=== PATIENT | female | born 1965 | race African-American/Black ===

== ENCOUNTER 2023-08-23 11:44 | Outpatient (AMB) | payer OTHER, SELFPAY ==
--- NOTE | 2023-08-23 11:59 | HO.NEPHOV ---
Intake Vital Signs 08/23/23 12:07 Height 5 ft 5 in Weight 135 lb 2 oz BMI 22.5 Blood Pressure Location Rt brachial Position Sitting Pulse 63 Pulse Source Pulse Oximeter Intake Visit Reasons: Post Transplant T[employer]r Required: No Accompanied by: Self / Same As Patient Allergies latex Allergy (Verified 08/23/23 12:12) Rash HPI HPI Comments History of Present Illness Details 57 year old female with history of ESRD 2/2 IgA nephropathy, HTN, prior morbid obesity s/p lap band, removal, and sleeve gastrectomy, who underwent a living donor renal transplant on 05/10/2023. She tolerated the procedure well. Post-operative kidney ultrasound showed two perinephric collections measuring 4.2 x 2.1 x 2.8 cm and 2.2 x 0.8 x 1.4 cm. On post-operative evaluation, she was noted to be hypotensive to the high 80s and her urine output had decreased. She was given a 500cc bolus of plasmalyte and started on Levophed. She was then transferred to the STICU for hemodynamic monitoring and vasopressor support. She was given 1 unit of PRBCs and weaned off of Levophed over the next two days. In terms of antibiotic prophylaxis, she is on Clotrimazole lozenges, Bactrim, and Valganciclovir but Valcyte has been on hold due to leucopenia. Her immunosuppression regimen includes Envarsus and Mycophenolate. She had right LE cellulits and was treated with antibiotics in [facility]. She claims to be compliant with her medications but has not kept up with her fluid intake. Assessment & Plan Assessment & Plan (1) Renal transplant recipient: Code(s): Z94.0 - Kidney transplant status Plan 1. Renal allograft function: Had been stable; continue to monitor; Blood work ordered ( currently not taking Valcyte) 2. Immunosuppression: Currently maintained on tacrolimus and mycophenolate therapy. We will continue to maintain her serum tacrolimus level between 8 and 11 ng/mL adjusting her dose accordingly. 3. Infection prophylaxis: Currently maintained on Bactrim single strength, and clotrimazole therapy via protocol.( not taking valcyte) 4. Leukopenia: H/O WBC low but no need for treatment at this time; continue to monitor 5. Anemia: stable; no indication for VERENICE therapy given excellent allograft function Follow up in 2 weeks Orders: Orders Tacrolimus Prograf Today Z94.0 - Kidney transplant status Complete Blood Count Auto Diff Today Z94.0 - Kidney transplant status Blood Urea Nitrogen Today Z94.0 - Kidney transplant status Calcium Today Z94.0 - Kidney transplant status Electrolytes Today Z94.0 - Kidney transplant status Creatinine Today Z94.0 - Kidney transplant status Phosphorus Today Z94.0 - Kidney transplant status Magnesium Today Z94.0 - Kidney transplant status PTHI Today Z94.0 - Kidney transplant status Liver Panel Today Z94.0 - Kidney transplant status Coding Level of Care Code New Pt Level 5 (20931) Diagnoses Renal transplant recipient Z94.0 PFSH Medical History (Updated 08/23/23 @ 12:21 by Marianna Kaufman MA) Syncope Seasonal allergies GA (obstructive sleep apnea) Morbid obesity Mild cognitive impairment IgA nephropathy Frequent falls ESRD (end stage renal disease) on dialysis Depression Cervical cancer Back pain Surgical History (Updated 08/23/23 @ 12:47 by Ryley Ybarra MD) Kidney transplant status H/O LEEP Status post gastric banding Social History (Updated 08/23/23 @ 12:23 by Marianna Kaufman MA) Alcohol intake: never Patient Tobacco Use Status: Never used Tobacco
[2023-08-23 12:07] VITALS: PULSE 63; BMI 22.5
== END 2023-08-23 12:45 | disposition home or self-care (01) ==
PROVIDERS: PCP Internal Medicine; Visit Provider Internal Medicine Nephrology
DX: Z48.22 Encounter for aftercare following kidney transplant (principal); Z94.0 Kidney transplant status; D84.821 Immunodeficiency due to drugs; Z79.621 Long term (current) use of calcineurin inhibitor
CPT/HCPCS: 99205

== ENCOUNTER → 2023-08-23 11:44 | Outpatient (BNVA) | payer OTHER, SELFPAY | PROVIDERS: PCP Internal Medicine; Visit Provider Internal Medicine Nephrology | DX: Z48.22 Encounter for aftercare following kidney transplant (principal); Z94.0 Kidney transplant status | CPT/HCPCS: 99202 ==

== ENCOUNTER 2023-09-11 09:23 | Outpatient (AMB) | payer OTHER, SELFPAY ==
[2023-09-11 09:27] VITALS: BP 124/88; PULSE 52; BMI 23.2
--- NOTE | 2023-09-11 09:27 | HO.NEPHOV_ITS ---
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 She tolerated the procedure well. Post-operative kidney ultrasound showed two perinephric collections measuring 4.2 x 2.1 x 2.8 cm and 2.2 x 0.8 x 1.4 cm. On post-operative evaluation, she was noted to be hypotensive to the high 80s and her urine output had decreased. She was given a 500cc bolus of plasmalyte and started on Levophed. She was then transferred to the STICU for hemodynamic monitoring and vasopressor support. She was given 1 unit of PRBCs and weaned off of Levophed over the next two days. In terms of antibiotic prophylaxis, she is on Clotrimazole lozenges, Bactrim, and Valganciclovir but Valcyte has been on hold due to leucopenia. Her immunosuppression regimen includes Envarsus and Mycophenolate. She had right LE cellulits and was treated with antibiotics in [facility] which has been resolved. She claims to be compliant with her medications but has not kept up with her fluid intake. She has acid reflux issues like before. [facility] Medical History (Updated 08/23/23 @ 12:21 by Marianna Kaufman MA) Syncope Seasonal allergies GA (obstructive sleep apnea) Morbid obesity Mild cognitive impairment IgA nephropathy Frequent falls ESRD (end stage renal disease) on dialysis Depression Cervical cancer Back pain Surgical History Kidney transplant status H/O LEEP Status post gastric banding Social History Alcohol intake: never Patient Tobacco Use Status: Never used Tobacco Vital Signs 09/11/23 09:27 Height 5 ft 5 in Weight 139 lb 8 oz BMI 23.2 BP 124/88 Blood Pressure Location Lt brachial Position Sitting Pulse 52 Pulse Source Pulse Oximeter Physical Exam Vital Signs: Last Vital Signs Pulse 52 09/11/23 09:27 BP 124/88 09/11/23 09:27 BMI result Body Mass Index 23.2 Const General: comfortable and no acute distress Orientation/consciousness: patient oriented x3 HEENT Head: Yes normocephalic Mouth: Normal oral and palatal mucosa present Eyes EOM: EOMs intact bilaterally Neck Neck: Yes supple Resp Auscultation: clear to auscultation bilaterally Cardio Jugular venous distension: no JVD Rate: regular rate GI Palpation (GI): Soft to palpation Auscultation: normal bowel sounds General: Yes no CVA tenderness Back/Spine/Pelvis Back: no CVA tenderness Skin General skin exam: no rashes or lesions noted Neuro General: patient oriented x3 and moves all extremities Extrem General: Yes no pedal edema Assessment & Plan Assessment & Plan (1) Renal transplant recipient: Code(s): Z94.0 - Kidney transplant status Plan 1. Renal allograft function: Had been stable; continue to monitor; Blood work ordered ( currently not taking Valcyte) 2. Immunosuppression: Currently maintained on tacrolimus and mycophenolate therapy. We will continue to maintain her serum tacrolimus level between 8 and 11 ng/mL adjusting her dose accordingly. 3. Infection prophylaxis: Currently maintained on Bactrim single strength, and clotrimazole therapy via protocol.( not taking valcyte) 4. Leukopenia: H/O WBC low but no need for treatment at this time; continue to monitor 5. Anemia: stable; no indication for VERENICE therapy given excellent allograft function Coding Level of Care Code Est Pt Level 3 (57894) Diagnoses Renal transplant recipient Z94.0
== END 2023-09-11 09:59 | disposition home or self-care (01) ==
PROVIDERS: PCP Internal Medicine; Visit Provider Internal Medicine Nephrology
DX: Z94.0 Kidney transplant status (principal)
CPT/HCPCS: 99213

== ENCOUNTER → 2023-09-11 09:23 | Outpatient (BNVA) | payer OTHER, SELFPAY | PROVIDERS: PCP Internal Medicine; Visit Provider Internal Medicine Nephrology | DX: Z94.0 Kidney transplant status (principal) | CPT/HCPCS: 99212 ==

== ENCOUNTER 2023-10-10 10:03 | Outpatient (AMB) | payer OTHER, SELFPAY ==
[2023-10-10 10:10] VITALS: BP 126/80; PULSE 57; O2SAT 100; BMI 23.8
--- NOTE | 2023-10-10 10:10 | HO.NEPHOV_ITS ---
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 She tolerated the procedure well. Post-operative kidney ultrasound showed two perinephric collections measuring 4.2 x 2.1 x 2.8 cm and 2.2 x 0.8 x 1.4 cm. On post-operative evaluation, she was noted to be hypotensive to the high 80s and her urine output had decreased. She was given a 500cc bolus of plasmalyte and started on Levophed. She was then transferred to the STICU for hemodynamic monitoring and vasopressor support. She was given 1 unit of PRBCs and weaned off of Levophed over the next two days. In terms of antibiotic prophylaxis, she is on Clotrimazole lozenges, Bactrim, and Valganciclovir but Valcyte has been on hold due to leucopenia. Her immunosuppression regimen includes Envarsus and Mycophenolate. She claims to be compliant with her medications but has not kept up with her fluid intake. [facility] Medical History (Updated 08/23/23 @ 12:21 by Marianna Kaufman MA) Syncope Seasonal allergies GA (obstructive sleep apnea) Morbid obesity Mild cognitive impairment IgA nephropathy Frequent falls ESRD (end stage renal disease) on dialysis Depression Cervical cancer Back pain Surgical History Kidney transplant status H/O LEEP Status post gastric banding Social History Alcohol intake: never Patient Tobacco Use Status: Never used Tobacco Vital Signs 10/10/23 10:10 Height 5 ft 5 in Weight 143 lb 2 oz BMI 23.8 BP 126/80 Blood Pressure Location Rt brachial Position Sitting Pulse 57 Pulse Source Pulse Oximeter Pulse Oximetry (%) 100 Oxygen Delivery Method Room Air Physical Exam Vital Signs: Last Vital Signs Pulse 57 10/10/23 10:10 BP 126/80 10/10/23 10:10 Pulse Ox 100 10/10/23 10:10 Oxygen Delivery Method Room Air 10/10/23 10:10 BMI result Body Mass Index 23.8 Const General: comfortable and no acute distress Orientation/consciousness: patient oriented x3 HEENT Head: Yes normocephalic Mouth: Normal oral and palatal mucosa present Eyes EOM: EOMs intact bilaterally Neck Neck: Yes supple Resp Auscultation: clear to auscultation bilaterally Cardio Jugular venous distension: no JVD Rate: regular rate GI Other: No tenderness over transplant Palpation (GI): Soft to palpation Auscultation: normal bowel sounds General: Yes no CVA tenderness Back/Spine/Pelvis Back: no CVA tenderness Skin General skin exam: no rashes or lesions noted Neuro General: patient oriented x3 and moves all extremities Extrem General: Yes no pedal edema Assessment & Plan Assessment & Plan (1) Renal transplant recipient: Code(s): Z94.0 - Kidney transplant status Plan 1. Renal allograft function: Had been stable; continue to monitor; Blood work ordered ( currently not taking Valcyte) 2. Immunosuppression: Currently maintained on tacrolimus and mycophenolate therapy. We will continue to maintain her serum tacrolimus level between 8 and 11 ng/mL adjusting her dose accordingly. 3. Infection prophylaxis: Currently maintained on Bactrim single strength, and clotrimazole therapy via protocol.( not taking valcyte) 4. Leukopenia: H/O WBC low but no need for treatment at this time; continue to monitor 5. Anemia: stable; no indication for VERENICE therapy given excellent allograft function Orders: Orders Electrolytes Today Z94.0 - Kidney transplant status Calcium Today Z94.0 - Kidney transplant status Complete Blood Count Auto Diff Today Z94.0 - Kidney transplant status Tacrolimus Prograf Today Z94.0 - Kidney transplant status Blood Urea Nitrogen Today Z94.0 - Kidney transplant status Creatinine Today Z94.0 - Kidney transplant status Other Ref Test - Misc Today Z94.0 - Kidney transplant status Coding Level of Care Code Est Pt Level 3 (31569) Diagnoses Renal transplant recipient Z94.0 Results Reviewed Nephrology Results: No Data to Display
== END 2023-10-10 10:31 | disposition home or self-care (01) ==
PROVIDERS: PCP Internal Medicine; Visit Provider Internal Medicine Nephrology
DX: Z94.0 Kidney transplant status (principal)
CPT/HCPCS: 99213

== ENCOUNTER → 2023-10-10 10:03 | Outpatient (BNVA) | payer OTHER, SELFPAY | PROVIDERS: PCP Internal Medicine; Visit Provider Internal Medicine Nephrology | DX: Z94.0 Kidney transplant status (principal) | CPT/HCPCS: 99212 ==

== ENCOUNTER 2023-11-21 10:39 | Outpatient (AMB) | payer OTHER, SELFPAY ==
[2023-11-21 10:43] VITALS: BP 162/92; BMI 25.0
--- NOTE | 2023-11-21 10:43 | HO.NEPHOV_ITS ---
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 She tolerated the procedure well. Post-operative kidney ultrasound showed two perinephric collections measuring 4.2 x 2.1 x 2.8 cm and 2.2 x 0.8 x 1.4 cm. On post-operative evaluation, she was noted to be hypotensive to the high 80s and her urine output had decreased. She was given a 500cc bolus of plasmalyte and started on Levophed. She was then transferred to the STICU for hemodynamic monitoring and vasopressor support. She was given 1 unit of PRBCs and weaned off of Levophed over the next two days. In terms of antibiotic prophylaxis, she is on Clotrimazole lozenges, Bactrim, and Valganciclovir but Valcyte has been on hold due to leucopenia. Her immunosuppression regimen includes Envarsus and Mycophenolate. She claims to be compliant with her medications but has not kept up with her fluid intake [facility] Medical History (Updated 08/23/23 @ 12:21 by Marianna Kaufman MA) Syncope Seasonal allergies GA (obstructive sleep apnea) Morbid obesity Mild cognitive impairment IgA nephropathy Frequent falls ESRD (end stage renal disease) on dialysis Depression Cervical cancer Back pain Surgical History Kidney transplant status H/O LEEP Status post gastric banding Social History Alcohol intake: never Patient Tobacco Use Status: Never used Tobacco Vital Signs 11/21/23 10:43 Height 5 ft 5 in Weight 150 lb 4 oz BMI 25.0 BP 162/92 H Blood Pressure Location Lt brachial Position Sitting Physical Exam Vital Signs: Last Vital Signs BP 162/92 H 11/21/23 10:43 BMI result Body Mass Index 25.0 Const General: comfortable and no acute distress Orientation/consciousness: patient oriented x3 HEENT Head: Yes normocephalic Mouth: Normal oral and palatal mucosa present Eyes EOM: EOMs intact bilaterally Neck Neck: Yes supple Resp Auscultation: clear to auscultation bilaterally Cardio Jugular venous distension: no JVD Rate: regular rate GI Palpation (GI): Soft to palpation Auscultation: normal bowel sounds General: Yes no CVA tenderness Back/Spine/Pelvis Back: no CVA tenderness Skin General skin exam: no rashes or lesions noted Neuro General: patient oriented x3 and moves all extremities Extrem General: Yes no pedal edema Assessment & Plan Assessment & Plan (1) Renal transplant recipient: Code(s): Z94.0 - Kidney transplant status Plan 1. Renal allograft function: Had been stable; continue to monitor; Blood work ordered ( currently not taking Valcyte) 2. Immunosuppression: Currently maintained on tacrolimus and mycophenolate therapy. We will continue to maintain her serum tacrolimus level between 8 and 11 ng/mL adjusting her dose accordingly. 3. Infection prophylaxis: Currently maintained on Bactrim single strength, and clotrimazole therapy via protocol.( not taking valcyte) 4. Leukopenia: H/O WBC low but no need for treatment at this time; continue to monitor 5. Anemia: stable; no indication for VERENICE therapy given excellent allograft function Orders: Orders Electrolytes Today Z94.0 - Kidney transplant status Calcium Today Z94.0 - Kidney transplant status Aspartate Amino Transferase Today Z94.0 - Kidney transplant status Alanine Aminotransferase Today Z94.0 - Kidney transplant status Complete Blood Count Auto Diff Today Z94.0 - Kidney transplant status Blood Urea Nitrogen Today Z94.0 - Kidney transplant status Creatinine Today Z94.0 - Kidney transplant status Tacrolimus Prograf Today Z94.0 - Kidney transplant status Protein Creatinine Ratio, Ur Today Z94.0 - Kidney transplant status Coding Level of Care Code Est Pt Level 3 (52251) Diagnoses Renal transplant recipient Z94.0 Results Reviewed Nephrology Results: No Data to Display
== END 2023-11-21 11:10 | disposition home or self-care (01) ==
PROVIDERS: PCP Internal Medicine; Visit Provider Internal Medicine Nephrology
DX: Z94.0 Kidney transplant status (principal)
CPT/HCPCS: 99213

== ENCOUNTER → 2023-11-21 10:39 | Outpatient (BNVA) | payer OTHER, SELFPAY | PROVIDERS: PCP Internal Medicine; Visit Provider Internal Medicine Nephrology | DX: Z94.0 Kidney transplant status (principal) | CPT/HCPCS: 99212 ==

== ENCOUNTER 2024-01-16 13:54 | Outpatient (AMB) | payer OTHER, SELFPAY ==
[2024-01-16 14:14] VITALS: BP 122/80; BMI 27.3
--- NOTE | 2024-01-16 14:14 | HO.NEPHOV_ITS ---
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 Valcyte has been on hold due to leucopenia. Her immunosuppression regimen includes Envarsus and Mycophenolate. She claims to be compliant with her medications. [facility] Medical History (Updated 08/23/23 @ 12:21 by Marianna Kaufman MA) Syncope Seasonal allergies GA (obstructive sleep apnea) Morbid obesity Mild cognitive impairment IgA nephropathy Frequent falls ESRD (end stage renal disease) on dialysis Depression Cervical cancer Back pain Surgical History Kidney transplant status H/O LEEP Status post gastric banding Social History Alcohol intake: never Patient Tobacco Use Status: Never used Tobacco Vital Signs 01/16/24 14:14 Height 5 ft 5 in Weight 164 lb 2 oz BMI 27.3 BP 122/80 Blood Pressure Location Lt brachial Position Sitting Physical Exam Vital Signs: Last Vital Signs BP 122/80 01/16/24 14:14 BMI result Body Mass Index 27.3 Const General: comfortable and no acute distress Orientation/consciousness: patient oriented x3 HEENT Head: Yes normocephalic Mouth: Normal oral and palatal mucosa present Eyes EOM: EOMs intact bilaterally Neck Neck: Yes supple Resp Auscultation: clear to auscultation bilaterally Cardio Jugular venous distension: no JVD Rate: regular rate GI Palpation (GI): Soft to palpation Auscultation: normal bowel sounds General: Yes no CVA tenderness Back/Spine/Pelvis Back: no CVA tenderness Skin General skin exam: no rashes or lesions noted Neuro General: patient oriented x3 and moves all extremities Extrem General: Yes no pedal edema Assessment & Plan Assessment & Plan (1) Renal transplant recipient: Code(s): Z94.0 - Kidney transplant status Plan 1. Renal allograft function: Had been stable; continue to monitor; Blood work ordered ( currently not taking Valcyte) 2. Immunosuppression: Currently maintained on tacrolimus and mycophenolate therapy. We will continue to maintain her serum tacrolimus level between 8 and 11 ng/mL adjusting her dose accordingly. 3. Infection prophylaxis: Given Bactrim single strength, and clotrimazole therapy via protocol.( not taking valcyte) 4. Leukopenia: H/O WBC low but no need for treatment at this time; continue to monitor 5. Anemia: stable; no indication for VREENICE therapy given excellent allograft function Orders: Orders Creatinine Today Z94.0 - Kidney transplant status Blood Urea Nitrogen Today Z94.0 - Kidney transplant status Electrolytes Today Z94.0 - Kidney transplant status Calcium Today Z94.0 - Kidney transplant status Complete Blood Count Auto Diff Today Z94.0 - Kidney transplant status Tacrolimus Prograf Today Z94.0 - Kidney transplant status Coding Level of Care Code Est Pt Level 4 (45946) Diagnoses Renal transplant recipient Z94.0 Results Reviewed Nephrology Results: No Data to Display
== END 2024-01-16 14:41 | disposition home or self-care (01) ==
PROVIDERS: PCP Internal Medicine; Visit Provider Internal Medicine Nephrology
DX: Z94.0 Kidney transplant status (principal)
CPT/HCPCS: 99214

== ENCOUNTER → 2024-01-16 13:54 | Outpatient (BNVA) | payer OTHER, SELFPAY | PROVIDERS: PCP Internal Medicine; Visit Provider Internal Medicine Nephrology | DX: I12.9 Hypertensive chronic kidney disease with stage 1 through stage 4 chronic kidney disease, or unspecified chronic kidney disease (principal); E66.01 Morbid (severe) obesity due to excess calories; N18.9 Chronic kidney disease, unspecified; Z94.0 Kidney transplant status | CPT/HCPCS: 99212 ==

== ENCOUNTER 2024-03-13 09:24 | Outpatient (REF) | payer OTHER, SELFPAY ==
[2024-03-13 15:10] LABS: Basophils Percent Auto 0.8 % (0-2); Eosinophils Absolute Auto 0.1 X10*3/uL (0.0-0.4); Eosinophils Percent Auto 2.1 % (0-4); Hematocrit 40.5 % (37.0-47.0); Hemoglobin 12.7 g/dl (12.0-16.0); Imm Gran Pct Auto 4.2 % (0.0-0.4); Lymphocytes Absolute Auto 0.5 X10*3/uL (1.2-4.9); Lymphocytes Percent Auto 22.8 % (20-40); MANUAL DIFF FLAG SCAN; Mean Corpuscular HGB Conc 31.4 g/dl (31.0-35.0); Mean Corpuscular Hemoglobin 29.5 pg (27.0-33.0); Mean Corpuscular Volume 94.2 fL (80.0-98.0); Mean Platelet Volume 10.9 fL (9.4-12.3); Monocytes Absolute Auto 0.2 X10*3/uL (0.1-1.2); Monocytes Percent Auto 8.9 % (2-11); Neutrophils Absolute Auto 1.5 x10*3/uL (2.0-8.3); Neutrophils Percent Auto 61.2 % (45-73); Platelet Count 179 X10*3/uL (160-400); Red Cell Distribution Width 13.6 % (11.0-16.0); SCAN SMEAR FLAG 1
[2024-03-13 15:12] LABS: White Blood Count 2.4 X10*3/uL (4.8-10.8)
[2024-03-13 15:28] LABS: Alanine Aminotransferase 12 U/L (0-31); Anion Gap 13 (12-20); Aspartate Amino Transferase 20 U/L (5-31); Blood Urea Nitrogen 25 mg/dL (9-16); Carbon Dioxide 23 mmol/L (22-29); Chloride 110 mmol/L (96-108); Estimated Glomerular Filt Rate 50; Potassium 4.1 mmol/L (3.3-5.1); Sodium 142 mmol/L (135-145)
[2024-03-13 15:56] LABS: SLIDE REVIEW VERIFIED
[2024-03-13 17:47] LABS: Creatinine Urine 205.13 mg/dL; Protein/Creatinine Ratio, Ur 0.06 (<0.2); Total Protein Urine Random 12 mg/dL (<12)
[2024-03-14 14:58] LABS: Tacrolimus Prograf 7.7 mcg/L
== END 2024-03-13 09:25 | disposition home or self-care (01) ==
LOC: HO.HKASLDS 09:24
PROVIDERS: Visit Provider Internal Medicine Nephrology
DX: Z94.0 Kidney transplant status (principal)
CPT/HCPCS: 36415; 80051; 80197; 82310; 82565; 82570; 84156; 84450; 84460; 84520; 85025

== ENCOUNTER 2024-03-14 13:49 | Outpatient (AMB) | payer OTHER, SELFPAY ==
--- NOTE | 2024-03-14 13:54 | HO.NEPHOV_ITS ---
Vital Signs 03/14/24 14:01 Height 5 ft 5 in Weight 168 lb 8 oz BMI 28.0 BP 110/80 Blood Pressure Location Lt brachial Position Sitting Pulse 63 Pulse Source Pulse Oximeter Pulse Oximetry (%) 99 Intake Visit Reasons: 2 mon follow up/ Confirmed Manager Strategy & Account Required: No Accompanied by: Self / Same As Patient Allergies latex Allergy (Verified 01/16/24 14:19) Rash HPI Comments Details: 57 year old female with history of ESRD 2/2 IgA nephropathy, HTN, prior morbid obesity s/p lap band, removal, and sleeve gastrectomy, who underwent a living donor renal transplant on 05/10/2023. Valcyte has been on hold due to leucopenia. Her immunosuppression regimen includes Envarsus and Mycophenolate. She claims to be compliant with her medications. [facility] Medical History (Updated 08/23/23 @ 12:21 by Marianna Kaufman MA) Syncope Seasonal allergies GA (obstructive sleep apnea) Morbid obesity Mild cognitive impairment IgA nephropathy Frequent falls ESRD (end stage renal disease) on dialysis Depression Cervical cancer Back pain Surgical History Kidney transplant status H/O LEEP Status post gastric banding Social History Alcohol intake: never Patient Tobacco Use Status: Never used Tobacco Physical Exam Vital Signs: Last Vital Signs BP 110/80 03/14/24 14:01 BMI result Body Mass Index 28.0 Const General: comfortable and no acute distress Orientation/consciousness: patient oriented x3 HEENT Head: Yes normocephalic Mouth: Normal oral and palatal mucosa present Eyes EOM: EOMs intact bilaterally Neck Neck: Yes supple Resp Auscultation: clear to auscultation bilaterally Cardio Jugular venous distension: no JVD Rate: regular rate GI Palpation (GI): Soft to palpation Auscultation: normal bowel sounds General: Yes no CVA tenderness Back/Spine/Pelvis Back: no CVA tenderness Skin General skin exam: no rashes or lesions noted Neuro General: patient oriented x3 and moves all extremities Extrem General: Yes no pedal edema Results Reviewed Nephrology Results: Hgb 12.7 g/dl (12.0-16.0) 03/13/24 WBC 2.4 X10*3/uL (4.8-10.8) L 03/13/24 Plt Count 179 X10*3/uL (160-400) 03/13/24 Sodium 142 mmol/L (135-145) 03/13/24 Potassium 4.1 mmol/L (3.3-5.1) 03/13/24 Chloride 110 mmol/L (96-108) H 03/13/24 Carbon Dioxide 23 mmol/L (22-29) 03/13/24 BUN 25 mg/dL (9-16) H 03/13/24 Creatinine 1.12 mg/dL (0.5-1.4) 03/13/24 Calcium 10.0 mg/dL (8.4-10.2) 03/13/24 Urine Creatinine 205.13 mg/dL 03/13/24 Protein/Creatinin Ratio 0.06 (<0.2) 03/13/24 Assessment & Plan Assessment & Plan (1) Renal transplant recipient: Code(s): Z94.0 - Kidney transplant status Category: Surgical Plan 1. Renal allograft function: Had been stable; continue to monitor; Blood work ordered ( currently not taking Valcyte) 2. Immunosuppression: Currently maintained on tacrolimus and mycophenolate therapy. We will continue to maintain her serum tacrolimus level between 8 and 11 ng/mL adjusting her dose accordingly. 3. Leukopenia: H/O WBC low but no need for treatment at this time; continue to monitor Orders: Orders Complete Blood Count Auto Diff 2 Months Z94.0 - Kidney transplant status Blood Urea Nitrogen Today Z94.0 - Kidney transplant status Phosphorus Today Z94.0 - Kidney transplant status Magnesium Today Z94.0 - Kidney transplant status Tacrolimus Prograf Today Z94.0 - Kidney transplant status Calcium Today Z94.0 - Kidney transplant status Electrolytes Today Z94.0 - Kidney transplant status Creatinine Today Z94.0 - Kidney transplant status Coding Level of Care Code Est Pt Level 4 (12787) Diagnoses Renal transplant recipient Z94.0
[2024-03-14 14:01] VITALS: BP 110/80; PULSE 63; O2SAT 99; BMI 28.0
== END 2024-03-14 14:27 | disposition home or self-care (01) ==
PROVIDERS: PCP Internal Medicine; Visit Provider Internal Medicine Nephrology
DX: Z94.0 Kidney transplant status (principal)
CPT/HCPCS: 99214

== ENCOUNTER → 2024-03-14 13:49 | Outpatient (BNVA) | payer OTHER, SELFPAY | PROVIDERS: PCP Internal Medicine; Visit Provider Internal Medicine Nephrology | DX: Z94.0 Kidney transplant status (principal); D84.81 Immunodeficiency due to conditions classified elsewhere | CPT/HCPCS: 99212 ==

== ENCOUNTER 2024-05-23 09:12 | Outpatient (REF) | payer OTHER, SELFPAY ==
[2024-05-23 17:31] LABS: MANUAL DIFF FLAG NO
[2024-05-23 17:34] LABS: Basophils Percent Auto 0.6 % (0-2); Eosinophils Percent Auto 1.2 % (0-4); Hematocrit 39.3 % (37.0-47.0); Hemoglobin 12.6 g/dl (12.0-16.0); Imm Gran Abs Auto 0.05 X10*3/uL (0.00-0.03); Imm Gran Pct Auto 1.5 % (0.0-0.4); Lymphocytes Absolute Auto 0.8 X10*3/uL (1.2-4.9); Lymphocytes Percent Auto 23.2 % (20-40); Mean Corpuscular HGB Conc 32.1 g/dl (31.0-35.0); Mean Corpuscular Hemoglobin 29.3 pg (27.0-33.0); Mean Corpuscular Volume 91.4 fL (80.0-98.0); Mean Platelet Volume 10.6 fL (9.4-12.3); Monocytes Absolute Auto 0.4 X10*3/uL (0.1-1.2); Monocytes Percent Auto 11.1 % (2-11); Neutrophils Absolute Auto 2.1 x10*3/uL (2.0-8.3); Neutrophils Percent Auto 62.4 % (45-73); Platelet Count 182 X10*3/uL (160-400); Red Cell Distribution Width 13.8 % (11.0-16.0); White Blood Count 3.3 X10*3/uL (4.8-10.8)
[2024-05-23 18:12] LABS: Alanine Aminotransferase 11 U/L (0-31); Anion Gap 11 (12-20); Aspartate Amino Transferase 21 U/L (5-31); Blood Urea Nitrogen 28 mg/dL (9-16); Calcium 10.4 mg/dL (8.4-10.2); Carbon Dioxide 23 mmol/L (22-29); Chloride 108 mmol/L (96-108); Estimated Glomerular Filt Rate 56; Magnesium 1.6 mg/dL (1.6-2.6); Phosphorus 3.5 mg/dL (2.7-4.5); Potassium 4.4 mmol/L (3.3-5.1); Sodium 138 mmol/L (135-145)
[2024-05-23 18:17] LABS: Creatinine Urine 105.97 mg/dL; Protein/Creatinine Ratio, Ur 0.08 (<0.2); Total Protein Urine Random 9 mg/dL (<12)
[2024-05-24 12:14] LABS: Tacrolimus Prograf 13.7 mcg/L
== END 2024-05-23 09:13 | disposition home or self-care (01) ==
LOC: HO.HKASLDS 09:12
PROVIDERS: Visit Provider Internal Medicine Nephrology
DX: I12.0 Hypertensive chronic kidney disease with stage 5 chronic kidney disease or end stage renal disease (principal); N18.6 End stage renal disease; Z94.0 Kidney transplant status
CPT/HCPCS: 36415; 80051; 80197; 82310; 82565; 82570; 83735; 84100; 84156; 84450; 84460; 84520; 85025; 99212

== ENCOUNTER 2024-05-23 13:59 | Outpatient (AMB) | payer OTHER, SELFPAY ==
--- NOTE | 2024-05-23 14:15 | HO.NEPHOV_ITS ---
Vital Signs 05/23/24 14:16 Height 5 ft 5 in Weight 177 lb 8 oz BMI 29.5 BP 110/80 Blood Pressure Location Rt brachial Position Sitting Pulse 74 Pulse Source Pulse Oximeter Pulse Oximetry (%) 98 Oxygen Delivery Method Room Air Intake Visit Reasons: 2 mon follow up/ Conf Box Toe Flanger Stitchdowns Required: No Accompanied by: Self / Same As Patient Allergies latex Allergy (Verified 05/23/24 14:20) Rash HPI Comments Details: 57 year old female with history of ESRD 2/2 IgA nephropathy, HTN, prior morbid obesity s/p lap band, removal, and sleeve gastrectomy, who underwent a living donor renal transplant on 05/10/2023. She had an ER visit for headache. Her immunosuppression regimen includes Envarsus and Mycophenolate. She claims to be compliant with her medications. She had follow up blood work this morning. [facility] Medical History (Updated 08/23/23 @ 12:21 by Marianna Kaufman MA) Syncope Seasonal allergies GA (obstructive sleep apnea) Morbid obesity Mild cognitive impairment IgA nephropathy Frequent falls ESRD (end stage renal disease) on dialysis Depression Cervical cancer Back pain Surgical History Kidney transplant status H/O LEEP Status post gastric banding Social History Alcohol intake: never Patient Tobacco Use Status: Never used Tobacco Review of Systems Const All systems reviewed & are unremarkable except as noted in HPI and below Physical Exam Vital Signs: Last Vital Signs Pulse 74 05/23/24 14:16 BP 110/80 05/23/24 14:16 Pulse Ox 98 05/23/24 14:16 Oxygen Delivery Method Room Air 05/23/24 14:16 BMI result Body Mass Index 29.5 Const General: comfortable and no acute distress Orientation/consciousness: patient oriented x3 HEENT Head: Yes normocephalic Mouth: Normal oral and palatal mucosa present Eyes EOM: EOMs intact bilaterally Neck Neck: Yes supple Resp Auscultation: clear to auscultation bilaterally Cardio Jugular venous distension: no JVD Rate: regular rate GI Palpation (GI): Soft to palpation Auscultation: normal bowel sounds General: Yes no CVA tenderness Back/Spine/Pelvis Back: no CVA tenderness Skin General skin exam: no rashes or lesions noted Neuro General: patient oriented x3 and moves all extremities Extrem General: Yes no pedal edema Results Reviewed Nephrology Results: Hgb 12.7 g/dl (12.0-16.0) 03/13/24 WBC 2.4 X10*3/uL (4.8-10.8) L 03/13/24 Plt Count 179 X10*3/uL (160-400) 03/13/24 Sodium 142 mmol/L (135-145) 03/13/24 Potassium 4.1 mmol/L (3.3-5.1) 03/13/24 Chloride 110 mmol/L (96-108) H 03/13/24 Carbon Dioxide 23 mmol/L (22-29) 03/13/24 BUN 25 mg/dL (9-16) H 03/13/24 Creatinine 1.12 mg/dL (0.5-1.4) 03/13/24 Calcium 10.0 mg/dL (8.4-10.2) 03/13/24 Urine Creatinine 205.13 mg/dL 03/13/24 Protein/Creatinin Ratio 0.06 (<0.2) 03/13/24 Assessment & Plan Assessment & Plan (1) Renal transplant recipient: Code(s): Z94.0 - Kidney transplant status Category: Surgical Plan 1. Renal allograft function: Had been stable; continue to monitor; Blood work results pending 2. Immunosuppression: Currently maintained on tacrolimus and mycophenolate therapy. We will continue to maintain her serum tacrolimus level between 8 and 11 ng/mL adjusting her dose accordingly. 3. Leukopenia: H/O WBC low but no need for treatment at this time; continue to monitor Orders: Orders Tacrolimus Prograf 2 Months Z94.0 - Kidney transplant status Calcium 2 Months Z94.0 - Kidney transplant status Magnesium 2 Months Z94.0 - Kidney transplant status Complete Blood Count Auto Diff 2 Months Z94.0 - Kidney transplant status Creatinine 2 Months Z94.0 - Kidney transplant status Blood Urea Nitrogen 2 Months Z94.0 - Kidney transplant status Electrolytes 2 Months Z94.0 - Kidney transplant status Phosphorus 2 Months Z94.0 - Kidney transplant status Coding Level of Care Code Est Pt Level 4 (64764) Diagnoses Renal transplant recipient Z94.0
[2024-05-23 14:16] VITALS: BP 110/80; PULSE 74; O2SAT 98; BMI 29.5
== END 2024-05-23 14:46 | disposition home or self-care (01) ==
PROVIDERS: PCP Internal Medicine; Visit Provider Internal Medicine Nephrology
DX: Z94.0 Kidney transplant status (principal)
CPT/HCPCS: 99214

== ENCOUNTER 2024-06-25 09:08 | Outpatient (REF) | payer OTHER, SELFPAY ==
[2024-06-25 17:45] LABS: MANUAL DIFF FLAG NO
[2024-06-25 18:13] LABS: Basophils Percent Auto 0.6 % (0-2); Eosinophils Percent Auto 1.1 % (0-4); Hematocrit 38.4 % (37.0-47.0); Hemoglobin 12.3 g/dl (12.0-16.0); Imm Gran Abs Auto 0.04 X10*3/uL (0.00-0.03); Imm Gran Pct Auto 1.1 % (0.0-0.4); Lymphocytes Absolute Auto 0.7 X10*3/uL (1.2-4.9); Lymphocytes Percent Auto 18.5 % (20-40); Mean Corpuscular Volume 93.7 fL (80.0-98.0); Mean Platelet Volume 10.5 fL (9.4-12.3); Monocytes Absolute Auto 0.3 X10*3/uL (0.1-1.2); Monocytes Percent Auto 9.4 % (2-11); Neutrophils Absolute Auto 2.4 x10*3/uL (2.0-8.3); Neutrophils Percent Auto 69.3 % (45-73); Platelet Count 185 X10*3/uL (160-400); Red Cell Distribution Width 14.1 % (11.0-16.0); White Blood Count 3.5 X10*3/uL (4.8-10.8)
[2024-06-25 18:24] LABS: Anion Gap 10 (12-20); Blood Urea Nitrogen 24 mg/dL (9-16); Calcium 9.9 mg/dL (8.4-10.2); Carbon Dioxide 26 mmol/L (22-29); Chloride 107 mmol/L (96-108); Estimated Glomerular Filt Rate 56; Potassium 4.8 mmol/L (3.3-5.1); Sodium 138 mmol/L (135-145)
[2024-06-26 11:18] LABS: Tacrolimus Prograf 5.2 mcg/L
== END 2024-06-25 09:09 | disposition home or self-care (01) ==
LOC: HO.HKASLDS 09:08
PROVIDERS: Visit Provider Internal Medicine Nephrology
DX: Z94.0 Kidney transplant status (principal)
CPT/HCPCS: 36415; 80051; 80197; 82310; 82565; 84520; 85025

== ENCOUNTER 2024-07-23 14:06 | Outpatient (AMB) | payer OTHER, SELFPAY ==
--- NOTE | 2024-07-23 14:12 | HO.NEPHOV_ITS ---
Vital Signs 07/23/24 14:14 Height 5 ft 5 in Weight 192 lb BMI 31.9 BP 110/60 Blood Pressure Location Rt brachial Position Sitting Pulse 64 Pulse Source Pulse Oximeter Pulse Oximetry (%) 98 Oxygen Delivery Method Room Air Intake Visit Reasons: 2 mon follow up Head Of Sales And Marketing Required: No Accompanied by: Self / Same As Patient Allergies latex Allergy (Verified 07/23/24 14:17) Rash HPI Comments Details: 57 year old female with history of ESRD 2/2 IgA nephropathy, HTN, prior morbid obesity s/p lap band, removal, and sleeve gastrectomy, who underwent a living donor renal transplant on 05/10/2023. She has been gaining weight. Her immunosuppression regimen includes Envarsus and Mycophenolate. She claims to be compliant with her medications. She feels well. [facility] Medical History (Updated 08/23/23 @ 12:21 by Marianna Kaufman MA) Syncope Seasonal allergies GA (obstructive sleep apnea) Morbid obesity Mild cognitive impairment IgA nephropathy Frequent falls ESRD (end stage renal disease) on dialysis Depression Cervical cancer Back pain Surgical History Kidney transplant status H/O LEEP Status post gastric banding Social History Alcohol intake: never Patient Tobacco Use Status: Never used Tobacco Review of Systems Const All systems reviewed & are unremarkable except as noted in HPI and below Physical Exam Vital Signs: Last Vital Signs Pulse 64 07/23/24 14:14 BP 110/60 07/23/24 14:14 Pulse Ox 98 07/23/24 14:14 Oxygen Delivery Method Room Air 07/23/24 14:14 BMI result Body Mass Index 31.9 Const General: comfortable and no acute distress Orientation/consciousness: patient oriented x3 HEENT Head: Yes normocephalic Mouth: Normal oral and palatal mucosa present Eyes EOM: EOMs intact bilaterally Neck Neck: Yes supple Resp Auscultation: clear to auscultation bilaterally Cardio Jugular venous distension: no JVD Rate: regular rate GI Palpation (GI): Soft to palpation Auscultation: normal bowel sounds General: Yes no CVA tenderness Back/Spine/Pelvis Back: no CVA tenderness Skin General skin exam: no rashes or lesions noted Neuro General: patient oriented x3 and moves all extremities Extrem General: Yes no pedal edema Results Reviewed Nephrology Results: Hgb 12.3 g/dl (12.0-16.0) 06/25/24 WBC 3.5 X10*3/uL (4.8-10.8) L 06/25/24 Plt Count 185 X10*3/uL (160-400) 06/25/24 Sodium 138 mmol/L (135-145) 06/25/24 Potassium 4.8 mmol/L (3.3-5.1) 06/25/24 Chloride 107 mmol/L (96-108) 06/25/24 Carbon Dioxide 26 mmol/L (22-29) 06/25/24 BUN 24 mg/dL (9-16) H 06/25/24 Creatinine 1.02 mg/dL (0.5-1.4) 06/25/24 Calcium 9.9 mg/dL (8.4-10.2) 06/25/24 Phosphorus 3.5 mg/dL (2.7-4.5) 05/23/24 Urine Creatinine 105.97 mg/dL 05/23/24 Protein/Creatinin Ratio 0.08 (<0.2) 05/23/24 Assessment & Plan Assessment & Plan (1) Renal transplant recipient: Code(s): Z94.0 - Kidney transplant status Category: Surgical Plan 1. Renal allograft function: Had been stable; continue to monitor 2. Immunosuppression: Currently maintained on tacrolimus and mycophenolate therapy. We will continue to maintain her serum tacrolimus level between 8 and 11 ng/mL adjusting her dose accordingly. 3. Leukopenia: H/O WBC low but no need for treatment at this time; continue to monitor Needs annual dermatology visit being on immunosuppression. Orders: Orders Complete Blood Count Auto Diff 3 Months Z94.0 - Kidney transplant status Electrolytes 3 Months Z94.0 - Kidney transplant status Calcium 3 Months Z94.0 - Kidney transplant status Tacrolimus Prograf 3 Months Z94.0 - Kidney transplant status Creatinine 3 Months Z94.0 - Kidney transplant status Blood Urea Nitrogen 3 Months Z94.0 - Kidney transplant status Phosphorus 3 Months Z94.0 - Kidney transplant status Vitamin D 25-OH Total Today Z94.0 - Kidney transplant status Parathyroid Hormone Intact Today Z94.0 - Kidney transplant status Magnesium 3 Months Z94.0 - Kidney transplant status Coding Level of Care Code Est Pt Level 4 (14558) Diagnoses Renal transplant recipient Z94.0
[2024-07-23 14:14] VITALS: BP 110/60; PULSE 64; O2SAT 98; BMI 31.9
== END 2024-07-23 14:36 | disposition home or self-care (01) ==
PROVIDERS: PCP Internal Medicine; Visit Provider Internal Medicine Nephrology
DX: Z94.0 Kidney transplant status (principal)
CPT/HCPCS: 99214

== ENCOUNTER → 2024-07-23 14:06 | Outpatient (BNVA) | payer OTHER, SELFPAY | PROVIDERS: PCP Internal Medicine; Visit Provider Internal Medicine Nephrology | DX: I12.9 Hypertensive chronic kidney disease with stage 1 through stage 4 chronic kidney disease, or unspecified chronic kidney disease (principal); N18.9 Chronic kidney disease, unspecified; E66.01 Morbid (severe) obesity due to excess calories; Z68.31 Body mass index [BMI] 31.0-31.9, adult; Z98.84 Bariatric surgery status; Z94.0 Kidney transplant status | CPT/HCPCS: 99212 ==

== ENCOUNTER 2024-10-29 10:04 | Outpatient (REF) | payer OTHER, SELFPAY ==
[2024-10-29 18:06] LABS: MANUAL DIFF FLAG NO
[2024-10-29 18:09] LABS: Basophils Percent Auto 0.7 % (0-2); Eosinophils Absolute Auto 0.1 X10*3/uL (0.0-0.4); Eosinophils Percent Auto 1.6 % (0-4); Hematocrit 38.2 % (37.0-47.0); Hemoglobin 11.9 g/dl (12.0-16.0); Imm Gran Abs Auto 0.05 X10*3/uL (0.00-0.03); Imm Gran Pct Auto 1.1 % (0.0-0.4); Lymphocytes Absolute Auto 0.8 X10*3/uL (1.2-4.9); Lymphocytes Percent Auto 17.4 % (20-40); Mean Corpuscular HGB Conc 31.2 g/dl (31.0-35.0); Mean Corpuscular Volume 93.2 fL (80.0-98.0); Monocytes Absolute Auto 0.3 X10*3/uL (0.1-1.2); Monocytes Percent Auto 7.6 % (2-11); Neutrophils Absolute Auto 3.1 x10*3/uL (2.0-8.3); Neutrophils Percent Auto 71.6 % (45-73); Platelet Count 172 X10*3/uL (160-400); Red Cell Distribution Width 14.3 % (11.0-16.0); White Blood Count 4.4 X10*3/uL (4.8-10.8)
[2024-10-29 18:29] LABS: Anion Gap 10 (12-20); Blood Urea Nitrogen 23 mg/dL (9-16); Calcium 9.6 mg/dL (8.4-10.2); Carbon Dioxide 23 mmol/L (22-29); Chloride 111 mmol/L (96-108); Estimated Glomerular Filt Rate > 60; Magnesium 1.8 mg/dL (1.6-2.6); Phosphorus 3.6 mg/dL (2.7-4.5); Potassium 4.3 mmol/L (3.3-5.1); Sodium 140 mmol/L (135-145)
[2024-10-30 14:58] LABS: Tacrolimus Prograf 6.7 mcg/L
== END 2024-10-29 10:05 | disposition home or self-care (01) ==
LOC: HO.HKASLDS 10:04
PROVIDERS: Visit Provider Internal Medicine Nephrology
DX: Z94.0 Kidney transplant status (principal); Z79.60 Long term (current) use of unspecified immunomodulators and immunosuppressants
CPT/HCPCS: 36415; 80051; 80197; 82310; 82565; 83735; 84100; 84520; 85025; 99212

== ENCOUNTER 2024-10-29 10:22 | Outpatient (AMB) | payer OTHER, SELFPAY ==
--- NOTE | 2024-10-29 10:34 | HO.NEPHOV ---
Vital Signs 10/29/24 10:35 Height 5 ft 5 in Weight 202 lb BMI 33.6 BP 122/82 Blood Pressure Location Rt brachial Position Sitting Intake Visit Reasons: Renal transplant recipient/ Conf Chief Nuclear Medicine Technologist Required: No Accompanied by: Self / Same As Patient Allergies latex Allergy (Verified 10/29/24 10:35) Rash HPI Comments Details: 57 year old female with history of ESRD 2/2 IgA nephropathy, HTN, prior morbid obesity s/p lap band, removal, and sleeve gastrectomy, who underwent a living donor renal transplant on 05/10/2023. She has been gaining weight. Her immunosuppression regimen includes Envarsus and Mycophenolate. She claims to be compliant with her medications. She is being initiated on weight loss medication. [facility] Medical History (Updated 08/23/23 @ 12:21 by Marianna Kaufman MA) Syncope Seasonal allergies GA (obstructive sleep apnea) Morbid obesity Mild cognitive impairment IgA nephropathy Frequent falls ESRD (end stage renal disease) on dialysis Depression Cervical cancer Back pain Surgical History Kidney transplant status H/O LEEP Status post gastric banding Social History Alcohol intake: never Patient Tobacco Use Status: Never used Tobacco Review of Systems Const All systems reviewed & are unremarkable except as noted in HPI and below Physical Exam Vital Signs: Last Vital Signs BP 122/82 10/29/24 10:35 BMI result Body Mass Index 33.6 Const General: comfortable and no acute distress Orientation/consciousness: patient oriented x3 HEENT Head: Yes normocephalic Mouth: Normal oral and palatal mucosa present Eyes EOM: EOMs intact bilaterally Neck Neck: Yes supple Resp Auscultation: clear to auscultation bilaterally Cardio Jugular venous distension: no JVD Rate: regular rate GI Palpation (GI): Soft to palpation Auscultation: normal bowel sounds General: Yes no CVA tenderness Back/Spine/Pelvis Back: no CVA tenderness Skin General skin exam: no rashes or lesions noted Neuro General: patient oriented x3 and moves all extremities Extrem General: Yes no pedal edema Results Reviewed Nephrology Results: Hgb 12.3 g/dl (12.0-16.0) 06/25/24 WBC 3.5 X10*3/uL (4.8-10.8) L 06/25/24 Plt Count 185 X10*3/uL (160-400) 06/25/24 Sodium 138 mmol/L (135-145) 06/25/24 Potassium 4.8 mmol/L (3.3-5.1) 06/25/24 Chloride 107 mmol/L (96-108) 06/25/24 Carbon Dioxide 26 mmol/L (22-29) 06/25/24 BUN 24 mg/dL (9-16) H 06/25/24 Creatinine 1.02 mg/dL (0.5-1.4) 06/25/24 Calcium 9.9 mg/dL (8.4-10.2) 06/25/24 Phosphorus 3.5 mg/dL (2.7-4.5) 05/23/24 Urine Creatinine 105.97 mg/dL 05/23/24 Protein/Creatinin Ratio 0.08 (<0.2) 05/23/24 Assessment & Plan Assessment & Plan (1) Renal transplant recipient: Code(s): Z94.0 - Kidney transplant status Category: Surgical Plan 1. Renal allograft function: Had been stable; continue to monitor 2. Immunosuppression: Currently maintained on tacrolimus and mycophenolate therapy. We will continue to maintain her serum tacrolimus level between 8 and 11 ng/mL adjusting her dose accordingly. 3. Leukopenia: H/O WBC low but no need for treatment at this time; continue to monitor Needs annual dermatology visit being on immunosuppression Orders: Orders Creatinine 2 Months Z94.0 - Kidney transplant status Blood Urea Nitrogen 2 Months Z94.0 - Kidney transplant status Calcium 2 Months Z94.0 - Kidney transplant status Phosphorus 2 Months Z94.0 - Kidney transplant status Complete Blood Count Auto Diff 2 Months Z94.0 - Kidney transplant status Tacrolimus Prograf 2 Months Z94.0 - Kidney transplant status Electrolytes 2 Months Z94.0 - Kidney transplant status Magnesium 2 Months Z94.0 - Kidney transplant status Alanine Aminotransferase 2 Months Z94.0 - Kidney transplant status Aspartate Amino Transferase 2 Months Z94.0 - Kidney transplant status Coding Level of Care Code Est Pt Level 4 (93287) Diagnoses Renal transplant recipient Z94.0
[2024-10-29 10:35] VITALS: BP 122/82; BMI 33.6
== END 2024-10-29 11:01 | disposition home or self-care (01) ==
PROVIDERS: PCP Internal Medicine; Visit Provider Internal Medicine Nephrology
DX: Z94.0 Kidney transplant status (principal)
CPT/HCPCS: 99214

== ENCOUNTER 2025-01-14 10:14 | Outpatient (REF) | payer OTHER, SELFPAY ==
[2025-01-14 18:03] LABS: MANUAL DIFF FLAG NO
[2025-01-14 18:30] LABS: Basophils Percent Auto 0.2 % (0-2); Hematocrit 39.1 % (37.0-47.0); Hemoglobin 12.3 g/dl (12.0-16.0); Imm Gran Abs Auto 0.07 X10*3/uL (0.00-0.03); Imm Gran Pct Auto 1.7 % (0.0-0.4); Lymphocytes Absolute Auto 0.8 X10*3/uL (1.2-4.9); Lymphocytes Percent Auto 18.1 % (20-40); Mean Corpuscular HGB Conc 31.5 g/dl (31.0-35.0); Mean Corpuscular Hemoglobin 28.7 pg (27.0-33.0); Mean Corpuscular Volume 91.4 fL (80.0-98.0); Mean Platelet Volume 10.8 fL (9.4-12.3); Monocytes Absolute Auto 0.3 X10*3/uL (0.1-1.2); Monocytes Percent Auto 7.1 % (2-11); Neutrophils Percent Auto 71.9 % (45-73); Platelet Count 189 X10*3/uL (160-400); Red Blood Count 4.28 X10*6/uL (4.20-5.50); Red Cell Distribution Width 13.9 % (11.0-16.0); White Blood Count 4.2 X10*3/uL (4.8-10.8)
[2025-01-14 18:39] LABS: Alanine Aminotransferase 13 U/L (0-31); Anion Gap 11 (12-20); Aspartate Amino Transferase 26 U/L (5-31); Blood Urea Nitrogen 29 mg/dL (9-16); Calcium 9.9 mg/dL (8.4-10.2); Carbon Dioxide 22 mmol/L (22-29); Chloride 111 mmol/L (96-108); Estimated Glomerular Filt Rate 55; Magnesium 1.8 mg/dL (1.6-2.6); Potassium 4.5 mmol/L (3.3-5.1); Sodium 139 mmol/L (135-145)
[2025-01-14 20:35] LABS: Vitamin D 25-OH Total 20.2 ng/mL (>30)
[2025-01-15 19:03] LABS: Tacrolimus Prograf 6.8 mcg/L
== END 2025-01-14 10:15 | disposition home or self-care (01) ==
LOC: HO.HKASLDS 10:14
PROVIDERS: Visit Provider Internal Medicine Nephrology
DX: Z94.0 Kidney transplant status (principal)
CPT/HCPCS: 36415; 80051; 80197; 82306; 82310; 82565; 83735; 84100; 84450; 84460; 84520; 85025; 99212

== ENCOUNTER 2025-01-14 10:25 | Outpatient (AMB) | payer OTHER, SELFPAY ==
--- NOTE | 2025-01-14 10:46 | HO.NEPHOV ---
Vital Signs 01/14/25 10:47 Height 5 ft 5 in Weight 190 lb 6 oz BMI 31.7 BP 124/70 Blood Pressure Location Rt brachial Position Sitting Intake Visit Reasons: Follow Up 3 mon-[facility] Construction Safety Consultant Required: No Accompanied by: Self / Same As Patient Allergies latex Allergy (Verified 01/14/25 10:46) Rash HPI Comments Details: 57 year old female with history of ESRD 2/2 IgA nephropathy, HTN, prior morbid obesity s/p lap band, removal, and sleeve gastrectomy, who underwent a living donor renal transplant on 05/10/2023. She has been gaining weight. Her immunosuppression regimen includes Envarsus and Mycophenolate. She claims to be compliant with her medications. [facility] Medical History (Updated 08/23/23 @ 12:21 by Marianna Kaufman MA) Syncope Seasonal allergies GA (obstructive sleep apnea) Morbid obesity Mild cognitive impairment IgA nephropathy Frequent falls ESRD (end stage renal disease) on dialysis Depression Cervical cancer Back pain Surgical History Kidney transplant status H/O LEEP Status post gastric banding Social History Alcohol intake: never Patient Tobacco Use Status: Never used Tobacco Review of Systems Const All systems reviewed & are unremarkable except as noted in HPI and below Physical Exam Vital Signs: Last Vital Signs BP 124/70 01/14/25 10:47 BMI result Body Mass Index 31.7 Const General: comfortable and no acute distress Orientation/consciousness: patient oriented x3 HEENT Head: Yes normocephalic Mouth: Normal oral and palatal mucosa present Eyes EOM: EOMs intact bilaterally Neck Neck: Yes supple Resp Auscultation: clear to auscultation bilaterally Cardio Jugular venous distension: no JVD Rate: regular rate GI Palpation (GI): Soft to palpation Auscultation: normal bowel sounds Skin General skin exam: no rashes or lesions noted Neuro General: patient oriented x3 and moves all extremities Extrem General: Yes no pedal edema Results Reviewed Nephrology Results: Hgb 11.9 g/dl (12.0-16.0) L 10/29/24 WBC 4.4 X10*3/uL (4.8-10.8) L 10/29/24 Plt Count 172 X10*3/uL (160-400) 10/29/24 Sodium 140 mmol/L (135-145) 10/29/24 Potassium 4.3 mmol/L (3.3-5.1) 10/29/24 Chloride 111 mmol/L (96-108) H 10/29/24 Carbon Dioxide 23 mmol/L (22-29) 10/29/24 BUN 23 mg/dL (9-16) H 10/29/24 Creatinine 0.95 mg/dL (0.5-1.4) 10/29/24 Calcium 9.6 mg/dL (8.4-10.2) 10/29/24 Phosphorus 3.6 mg/dL (2.7-4.5) 10/29/24 Urine Creatinine 105.97 mg/dL 05/23/24 Protein/Creatinin Ratio 0.08 (<0.2) 05/23/24 Assessment & Plan Assessment & Plan (1) Renal transplant recipient: Code(s): Z94.0 - Kidney transplant status Category: Surgical Plan 1. Renal allograft function: Had been stable; continue to monitor 2. Immunosuppression: Currently maintained on tacrolimus and mycophenolate therapy. We will continue to maintain her serum tacrolimus level between 8 and 11 ng/mL adjusting her dose accordingly. 3. Leukopenia: H/O WBC low but no need for treatment at this time; continue to monitor Needs annual dermatology visit being on immunosuppression- has an appointment Orders: Orders Complete Blood Count Auto Diff 2 Months Z94.0 - Kidney transplant status Blood Urea Nitrogen 2 Months Z94.0 - Kidney transplant status Electrolytes 2 Months Z94.0 - Kidney transplant status Magnesium 2 Months Z94.0 - Kidney transplant status Aspartate Amino Transferase 2 Months Z94.0 - Kidney transplant status Parathyroid Hormone Intact 2 Months Z94.0 - Kidney transplant status Creatinine 2 Months Z94.0 - Kidney transplant status Calcium 2 Months Z94.0 - Kidney transplant status Phosphorus 2 Months Z94.0 - Kidney transplant status Alanine Aminotransferase 2 Months Z94.0 - Kidney transplant status Tacrolimus Prograf 2 Months Z94.0 - Kidney transplant status Vitamin D 25-OH Total Today Z94.0 - Kidney transplant status Coding Level of Care Code Est Pt Level 4 (04052) Diagnoses Renal transplant recipient Z94.0
[2025-01-14 10:47] VITALS: BP 124/70; BMI 31.7
== END 2025-01-14 11:17 | disposition home or self-care (01) ==
LOC: HO.HKAS 10:26
PROVIDERS: PCP Internal Medicine; Visit Provider Internal Medicine Nephrology
DX: Z94.0 Kidney transplant status (principal)
CPT/HCPCS: 99214

== ENCOUNTER 2025-03-12 08:42 | Outpatient (REF) | payer OTHER, SELFPAY ==
[2025-03-12 18:20] LABS: Hematocrit 41.6 % (37.0-47.0); Hemoglobin 12.8 g/dl (12.0-16.0); Mean Corpuscular HGB Conc 30.8 g/dl (31.0-35.0); Mean Corpuscular Hemoglobin 29.6 pg (27.0-33.0); Mean Corpuscular Volume 96.1 fL (80.0-98.0); Mean Platelet Volume 11.5 fL (9.4-12.3); Platelet Count 202 X10*3/uL (160-400); Red Blood Count 4.33 X10*6/uL (4.20-5.50); Red Cell Distribution Width 14.3 % (11.0-16.0); White Blood Count 5.3 X10*3/uL (4.8-10.8)
[2025-03-12 18:36] LABS: Alanine Aminotransferase 10 U/L (0-31); Anion Gap 13 (12-20); Aspartate Amino Transferase 28 U/L (5-31); Blood Urea Nitrogen 27 mg/dL (9-16); Calcium 10.3 mg/dL (8.4-10.2); Carbon Dioxide 21 mmol/L (22-29); Chloride 110 mmol/L (96-108); Estimated Glomerular Filt Rate 43; Magnesium 2.1 mg/dL (1.6-2.6); Phosphorus 3.5 mg/dL (2.7-4.5); Potassium 4.7 mmol/L (3.3-5.1); Sodium 139 mmol/L (135-145)
[2025-03-12 18:49] LABS: Basophils Abs Manual 0.1 X10*3/uL (0.0-0.2); Basophils Percent Manual 1 % (0-2); Lymphocytes Absolute Manual 0.7 X10*3/uL (1.2-4.9); Lymphocytes Percent Manual 14 % (20-40); Monocytes Absolute Manual 0.2 X10*3/uL (0.1-1.2); Monocytes Percent Manual 4 % (2-11); Neutrophils Percent Manual 81 % (45-73); Parathyroid Hormone Intact 169.4 pg/mL (8.7-77.1)
[2025-03-12 18:50] LABS: Acanthocytes 3+ (>5) /OIF; Burr Cells 3+ (>5) /OIF; RBC Morphology NOTED
[2025-03-12 18:51] LABS: Platelet Estimate NORMAL (NORMAL); Platelet Morphology Comment NORMAL
[2025-03-12 18:52] LABS: Band Neutrophils Percent 0 % (3-5); Neutrophils Absolute Manual 4.3 X10*3/uL (2.0-8.3)
[2025-03-13 09:44] LABS: Tacrolimus Prograf 8.1 mcg/L
== END 2025-03-12 08:43 | disposition home or self-care (01) ==
LOC: HO.HKASLDS 08:42
PROVIDERS: Visit Provider Internal Medicine Nephrology
DX: Z94.0 Kidney transplant status (principal)
CPT/HCPCS: 36415; 80051; 80197; 82310; 82565; 83735; 83970; 84100; 84450; 84460; 84520; 85007; 85027

== ENCOUNTER 2025-03-18 09:31 | Outpatient (AMB) | payer OTHER, SELFPAY ==
--- NOTE | 2025-03-18 09:48 | HO.NEPHOV ---
Vital Signs 03/18/25 09:50 Height 5 ft 5 in Weight 192 lb 2 oz BMI 32.0 BP 100/60 Blood Pressure Location Rt brachial Position Sitting Intake Visit Reasons: 2mon Transplant follow-up w/labs Computer Operations Analyst Required: No Accompanied by: Self / Same As Patient Allergies latex Allergy (Verified 03/18/25 09:49) Rash HPI Comments Details: 59 year old female with history of ESRD 2/2 IgA nephropathy, HTN, prior morbid obesity s/p lap band, removal, and sleeve gastrectomy, who underwent a living donor renal transplant on 05/10/2023. She has been gaining weight. Her immunosuppression regimen includes Envarsus and Mycophenolate. She claims to be compliant with her medications. She developed hypertension and was initiated on BP medications. She has been getting orthostatic symptoms since. [facility] Medical History (Updated 03/18/25 @ 10:04 by Ryley Ybarra MD) Syncope Seasonal allergies GA (obstructive sleep apnea) Morbid obesity Mild cognitive impairment IgA nephropathy Frequent falls ESRD (end stage renal disease) on dialysis Depression Cervical cancer Back pain Surgical History Kidney transplant status H/O LEEP Status post gastric banding Social History Alcohol intake: never Patient Tobacco Use Status: Never used Tobacco Review of Systems Const All systems reviewed & are unremarkable except as noted in HPI and below Physical Exam Vital Signs: Last Vital Signs BP 100/60 03/18/25 09:50 BMI result Body Mass Index 32.0 Const General: comfortable and no acute distress Orientation/consciousness: patient oriented x3 HEENT Head: Yes normocephalic Mouth: Normal oral and palatal mucosa present Eyes EOM: EOMs intact bilaterally Neck Neck: Yes supple Resp Auscultation: clear to auscultation bilaterally Cardio Jugular venous distension: no JVD Rate: regular rate GI Palpation (GI): Soft to palpation Auscultation: normal bowel sounds General: Yes no CVA tenderness Back/Spine/Pelvis Back: no CVA tenderness Skin General skin exam: no rashes or lesions noted Neuro General: patient oriented x3 and moves all extremities Extrem General: Yes no pedal edema Results Reviewed Nephrology Results: Hgb 12.8 g/dl (12.0-16.0) 03/12/25 WBC 5.3 X10*3/uL (4.8-10.8) 03/12/25 Plt Count 202 X10*3/uL (160-400) 03/12/25 Sodium 139 mmol/L (135-145) 03/12/25 Potassium 4.7 mmol/L (3.3-5.1) 03/12/25 Chloride 110 mmol/L (96-108) H 03/12/25 Carbon Dioxide 21 mmol/L (22-29) L 03/12/25 BUN 27 mg/dL (9-16) H 03/12/25 Creatinine 1.28 mg/dL (0.5-1.4) 03/12/25 Calcium 10.3 mg/dL (8.4-10.2) H 03/12/25 Phosphorus 3.5 mg/dL (2.7-4.5) 03/12/25 PTH Intact 169.4 pg/mL (8.7-77.1) H 03/12/25 Urine Creatinine 105.97 mg/dL 05/23/24 Protein/Creatinin Ratio 0.08 (<0.2) 05/23/24 Assessment & Plan Assessment & Plan (1) Renal transplant recipient: Code(s): Z94.0 - Kidney transplant status Category: Surgical (2) Hypertension: Code(s): I10 - Essential (primary) hypertension Category: Medical Qualifiers: Hypertension type: primary hypertension Qualified Code(s): I10 - Essential (primary) hypertension Plan 1. Renal allograft function: Had been stable; continue to monitor 2. Immunosuppression: Currently maintained on tacrolimus and mycophenolate therapy. We will continue to maintain her serum tacrolimus level between 8 and 11 ng/mL adjusting her dose accordingly. 3. Hypertension. Reduced Amlodipine/Olmesartan to 5-10 mg daily Needs annual dermatology visit being on immunosuppression- has an appointment Orders: Orders Tacrolimus Prograf 3 Weeks I10 - Essential (primary) hypertension, Z94.0 - Kidney transplant status Electrolytes 3 Weeks I10 - Essential (primary) hypertension, Z94.0 - Kidney transplant status Calcium 3 Weeks I10 - Essential (primary) hypertension, Z94.0 - Kidney transplant status Parathyroid Hormone Intact 3 Weeks I10 - Essential (primary) hypertension, Z94.0 - Kidney transplant status Creatinine 3 Weeks I10 - Essential (primary) hypertension, Z94.0 - Kidney transplant status Blood Urea Nitrogen 3 Weeks I10 - Essential (primary) hypertension, Z94.0 - Kidney transplant status Vitamin D 25-OH Total 3 Weeks I10 - Essential (primary) hypertension, Z94.0 - Kidney transplant status Protein Creatinine Ratio, Ur 3 Weeks I10 - Essential (primary) hypertension, Z94.0 - Kidney transplant status UA and rflx microscopic 3 Weeks I10 - Essential (primary) hypertension, Z94.0 - Kidney transplant status Coding Level of Care Code Est Pt Level 4 (41547) Diagnoses Renal transplant recipient Z94.0 Primary hypertension I10 Hypertension type: primary hypertension
[2025-03-18 09:50] VITALS: BP 100/60; BMI 32.0
== END 2025-03-18 11:15 | disposition home or self-care (01) ==
LOC: HO.HKAS 09:32
PROVIDERS: PCP Internal Medicine; Visit Provider Internal Medicine Nephrology
DX: Z94.0 Kidney transplant status (principal); I10 Essential (primary) hypertension
CPT/HCPCS: 99214

== ENCOUNTER → 2025-03-18 09:31 | Outpatient (BNVA) | payer OTHER, SELFPAY | PROVIDERS: PCP Internal Medicine; Visit Provider Internal Medicine Nephrology | DX: I10 Essential (primary) hypertension (principal); Z94.0 Kidney transplant status | CPT/HCPCS: 99212 ==

== ENCOUNTER 2025-05-07 08:46 | Outpatient (REF) | payer OTHER, SELFPAY ==
--- OUTSIDE RECORDS SUMMARY | 2025-05-07 08:55 | XMS_ITS | Clinical Summary ---
Author Organization [facility] Address [address] [address] Phone Care Team Providers Care Venetian Blind Machine Operator Name Role Phone Radha Bridges Primary Care Provider Allergies Active Allergy Reactions Criticality Noted Date Comments Latex 12/17/2019 Medications Docusate Sodium (DSS) 100 MG capsule Take 2 capsules by mouth 2 (two) times a day 180 capsule 11 11/15/2022 Active clotrimazole (MYCELEX) 10 MG benjie 07/27/2023 Active albuterol HFA (PROVENTIL HFA;VENTOLIN HFA) 108 (90 Base) MCG/ACT inhaler INHALE 2 PUFFS EVERY 6 HOURS 07/21/2023 Active mycophenolate (MYFORTIC) 180 MG EC tablet 07/14/2023 Active sulfamethoxazol e-trimethoprim (BACTRIM,SEPTRA ) 400-80 MG per tablet 07/04/2023 Active Tacrolimus ER 1 MG tablet sustained-relea se 24 hour Take 7 mg by mouth 05/15/2023 Active valGANciclovir (VALCYTE) 450 MG tablet 06/07/2023 Active Active Problems Problem Noted Date Diagnosed Date End stage renal disease 01/20/2021 Dependence on renal dialysis 01/20/2021 Hyperparathyroidism 01/20/2021 Chronic kidney disease stage 4 12/17/2019 Blood in urine 12/17/2019 Essential hypertension 12/17/2019 Proteinuria 12/17/2019 Family History Relation Status Comments Father Alive Mother Alive Social History Tobacco Use Types Packs/Day Years Used Date Smoking Tobacco: Never Smokeless Tobacco: Never Alcohol Use Standard Drinks/Week Comments No 0 (1 standard drink = 0.6 oz pur e alcohol) Comments Unknown Sex and Gender Information Value Date Recorded Sex Assigned at Not on file Legal Sex Female 5:16 PM EST Gender Identity Not on file Sexual Orientation Not on file Last Filed Vital Signs Vital Sign Reading Time Taken Comments Blood Pressure 134/80 07/13/2020 12:00 PM EDT Pulse 65 07/13/2020 12:00 PM EDT Temperature - - Respiratory Rate - - Oxygen Saturation 98% 02/20/2020 12:00 PM EDT Inhaled Oxygen Concentration - - Weight 83 kg (183 lb) 07/13/2020 12:00 PM EDT Height 165.1 cm (5' 5 ) 07/13/2020 12:00 PM EDT Body Mass Index 30.45 07/13/2020 12:00 PM EDT Plan of Treatment Health Maintenance Due Date Last Done Comments Breast Cancer Screening 1965 Hepatitis B Vaccine (1 of 3 - 19+ 3-dose series) 1984 05/05/2010, 11/02/2009, 10/02/2009 Pneumococcal Vaccine: 50+ Ye ars (1 of 2 - PCV) 1984 Colorectal Cancer Screening: Annual FOBT 2014 Colorectal Cancer Screening: Colonoscopy 2014 Colorectal Cancer Screening: Sigmoidoscopy 2014 Influenza Vaccine (#1) 2025 10/21/2009 [place] [id number] ([id number]) [facility] ([id number]) Care Teams Venetian Blind Machine Operator Relationship Specialty Start Date End Date Radha Bridgse DO [address] PCP - General 11/02/20
--- OUTSIDE RECORDS SUMMARY | 2025-05-07 08:55 | XMS_ITS | Clinical Summary ---
Author Organization [facility] Address [address] [place] [address] Care Team Providers Care Hands Parter Name Role Phone Audelia Vera MD Primary Care Provider Social History Tobacco Use Types Packs/Day Years Used Date Smoking Tobacco: Never Assessed Comments Unknown Sex and Gender Information Value Date Recorded Sex Assigned at Female 08/27/2024 10:16 AM EST Legal Sex Female 4:43 PM EST Gender Identity Female 08/27/2024 10:16 AM EST Sexual Orientation Heterosexual (straight) 08/27 10:16 AM EST Plan of Treatment Health Maintenance Due Date Last Done Comments Hepatitis C Virus Screening 1965 HIV Screening 1978 DTaP/Tdap/Td Vaccines (1 - Tdap) 1984 Pneumococcal Vaccines 50+ (1 of 2 - PCV) 1984 Hepatitis B Vaccines (1 of 3 - Risk Dialysis 4-dose series) 1985 Pap Smear (Ages 21-65) 1986 Mammogram 2005 Colonoscopy 2010 Zoster (Shingles) Vaccine (1 of 2) 2015 COVID-19 Vaccine (3 - 2023-2 5 season) 2024 08/10/2021, 07/19/2021 Influenza Vaccine 05/23/2025 09/11/2014, , 07/20/2011, Additional history exists Insurance MISC MGD MEDICARE OUT OF NETWORK Care Teams Hands Parter Relationship Specialty Start Date End Date Audelia Vera MD [address] [place] [address] PCP - General 11/02/23
--- OUTSIDE RECORDS SUMMARY | 2025-05-07 08:55 | XMS_ITS | Clinical Summary ---
Author Organization 175 [facility] Address [address] [place] [address] Phone Care Team Providers Care Topographic Computator Name Role Phone Audelia Vera MD Primary Care Provider Allergies Active Allergy Reactions Criticality Noted Date Comments Latex Hives,Itching 11/23/2022 Medications ciclopirox (LOPROX) 0.77 % gel Apply 1 Application topically 1 (one) time each day. 3 Active valGANciclovir (VALCYTE) 450 mg tablet Take 1 tablet (450 mg total) by mouth 1 (one) time each day. 3 Active mycophenolate (MYFORTIC) 180 mg EC tablet Take 1 tablet (180 mg total) by mouth 2 (two) times a day. 3 Active docusate sodium (COLACE) 100 mg capsule Take 100 mg by mouth as needed. 3 Active albuterol sulfate (ProAir RespiClick) 90 mcg/actuation aerosol powdr breath activated Inhale into the lungs. Active Active Problems Problem Noted Date Diagnosed Date Chronic cough 12/05/2022 Overview (09/12/2024): Last Assessment & Plan: Cough has disappeared. It was likely related to postnasal drip. She will continue following with her primary care physician. Surgical History Surgery Date Site/Laterality Comments OTHER SURGICAL HISTORY 05/02/2008 N/A PROCEDURE: HISTORY OTHER; COMMENT: realize gastric band OTHER SURGICAL HISTORY 04/2012 N/A PROCEDURE: HISTORY OTHER; COMMENT: removal of realize gastric band VAGINOSCOPY PROCEDURE: [place] COLPOSCOPY CERVIX VAG LOOP ELTRD BX CERVIX Medical History Medical History Date Comments Cervical cancer ([facility] V24, [facility] V28) DX:Cervical cancer (HCC) Depression DX:Depression Morbid obesity ([facility] V24, [facility] V28) DX:Morbid obesity (HCC) Obstructive sleep apnea DX:Obstr uctive sleep apnea Essential hypertension DX:Essent ial hypertension Social History Tobacco Use Types Packs/Day Years Used Date Smoking Tobacco: Never Smokeless Tobacco: Never Alcohol Use Standard Drinks/Week Comments Never 0 (1 standard drink = 0.6 oz pur e alcohol) Comments Unknown Sex and Gender Information Value Date Recorded Sex Assigned at Not on file Legal Sex Female 9:46 AM EST Gender Identity Not on file Sexual Orientation Not on file Obstetrics History Last Filed Vital Signs Vital Sign Reading Time Taken Comments Blood Pressure 118/76 06/16/2023 1:38 PM EDT Pulse 66 06/16/2023 1:38 PM EDT Temperature - - Respiratory Rate - - Oxygen Saturation - - Inhaled Oxygen Concentration - - Weight 58.5 kg (129 lb) 12/12/2024 2:48 PM EST Height 165.1 cm (5' 5 ) 06/16/2023 1:38 PM EDT Body Mass Index 21.47 06/16/2023 1:38 PM EDT Plan of Treatment Health Maintenance Due Date Last Done Comments Breast Cancer Screening 1965 Pneumococcal Vaccine: 50+ Years (1 of 2 - PCV) 1984 Zoster Vaccines (1 of 2) 1984 Cervical Cancer Screening: Pap Smear 1986 COVID-19 Vaccine (3 - Pfizer risk series) 09/07/2021 08/10/2021, 07/19/2021 Cholesterol Screening (Lipid Panel) 10/01/2022 Colorectal Cancer Screening: Colonoscopy 10/01/2022 Depression Screening 10/01/2022 HIV Screening 10/01/2022 Hepatitis C Screening 10/01/2022 Medicare Annual Wellness Visit 10/01/2022 Social Influencers of Health Screening 10/01/2022 Hypertension/CHF/CAD Annual BMP Blood Test 12/12/2024 Influenza Vaccine (#1) 2025 4, 06/13/2012, 07/20/2011, Additional history exists DTaP,Tdap,and Td Vaccines (3 - Td or Tdap) 02/19/2031 02/19/2021, 09/02/2009 RSV Immunization Adult Patients (1 - 1-dose 75+ series) 2040 Hepatitis B Vaccines Completed 05/05/2010, 11/02/2009, 10/02/2009 HIB Vaccines Aged Out No longer eligi ble based on patient's age to complete this topic HPV Vaccines Aged Out No longer eligi ble based on patient's age to complete this topic Hepatitis A Vaccines Aged Out No long er eligible based on patient's age to complete this topic IPV Vaccines Aged Out No longer eligi ble based on patient's age to complete this topic MMR Vaccines Aged Out No longer eligi ble based on patient's age to complete this topic Meningococcal ACWY Vaccine Aged Out N o longer eligible based on patient's age to complete this topic Meningococcal B Vaccine Aged Out No l onger eligible based on patient's age to complete this topic RSV Immunization Patients Under 20 months Aged Out No longer eligible based on patient's age to complete this topic Varicella Vaccines Aged Out No longer eligible based on patient's age to complete this topic Insurance [place]ID - [place] [facility] MEDICARE Member Subscriber Plan / Payer (Ef fective 2023-Present) Name:RENETTA MARTINEZ Relation to Subscriber:Self Name:Renetta Martinez Payer ID:[id number] Group ID:[id number] Type:Not on file Address: [address] [place] [address] Advance Directives Documents on File Type Date Recorded Patient Milker Machine Expl anation Health Care Decision (hx) 11/20/2019 AD ZHONG DIRECTIVE Health Care Decision (hx) 11/20/2019 AD ZHONG DIRECTIVE Health Care Decision (hx) 11/20/2019 AD ZHONG DIRECTIVE Health Care Decision (hx) 11/20/2019 AD ZHONG DIRECTIVE Health Care Decision (hx) 11/20/2019 AD ZHONG DIRECTIVE Health Care Decision (hx) 11/20/2019 AD ZHONG DIRECTIVE Health Care Decision (hx) 11/20/2019 AD ZHONG DIRECTIVE Health Care Decision (hx) 11/20/2019 AD ZHONG DIRECTIVE Health Care Decision (hx) 11/20/2019 AD ZHONG DIRECTIVE Health Care Decision (hx) 11/20/2019 AD ZHONG DIRECTIVE Health Care Decision (hx) 11/20/2019 AD ZHONG DIRECTIVE Health Care Decision (hx) 11/20/2019 AD ZHONG DIRECTIVE Health Care Decision (hx) 11/20/2019 AD ZHONG DIRECTIVE Health Care Decision (hx) 11/20/2019 AD ZHONG DIRECTIVE Health Care Decision (hx) 11/20/2019 AD ZHONG DIRECTIVE Health Care Decision (hx) 11/20/2019 AD ZHONG DIRECTIVE Health Care Decision (hx) 11/20/2019 AD ZHONG DIRECTIVE Health Care Decision (hx) 11/20/2019 AD ZHONG DIRECTIVE Health Care Decision (hx) 11/20/2019 AD ZHONG DIRECTIVE Health Care Decision (hx) 11/20/2019 AD ZHONG DIRECTIVE Care Teams Topographic Computator Relationship Specialty Start Date End Date Audelia Vera MD [address] [place] [phone] PCP - General Internal Medicine 03/15/21
--- OUTSIDE RECORDS SUMMARY | 2025-05-07 08:55 | XMS_ITS ---
Author Name [facility] Organization Unknown Problems Problem Status Onset Date Problem Type Date of Resoluti on Source Complication of transplanted kidney, unspecified complication active [facility] Encounter Type Encounter Reason Primary Diagnosis Location Date Ambulatory Unspecified complication of kidney transplant Unspecified complication of kidney transplant [place] 10/11/2024 Care Team Organization Name Specialty Phone Email Start Date End Renato adhikari [facility] Primary Care 10/14/2024 01/08/2025 [facility] [employer] [facility] Primary Care 10/10/2024 [facility] 08/27/2024
[2025-05-07 13:57] LABS: MANUAL DIFF FLAG NO
[2025-05-07 14:03] LABS: Appearance Urine Clear; Glucose Urine UA Negative (Negative); Hematocrit 37.7 % (37.0-47.0); Hemoglobin 11.6 g/dl (12.0-16.0); Imm Gran Abs Auto 0.01 X10*3/uL (0.00-0.03); Imm Gran Pct Auto 0.2 % (0.0-0.4); Lymphocytes Absolute Auto 1.2 X10*3/uL (1.2-4.9); Mean Corpuscular HGB Conc 30.8 g/dl (31.0-35.0); Mean Corpuscular Hemoglobin 29.7 pg (27.0-33.0); Mean Corpuscular Volume 96.4 fL (80.0-98.0); NRBC Abs Auto 0.000 X10*3/uL (0.0-0.012); NRBC Pct Auto 0.0 /100WBC (0.0-0.2); PH 7.0 (5.0-9.0); Platelet Count 209 X10*3/uL (160-400); Red Blood Count 3.91 X10*6/uL (4.20-5.50); Specific Gravity - Urine 1.020 (1.005-1.025); UMIC TRIGGER UA YES; White Blood Count 4.7 X10*3/uL (4.8-10.8)
[2025-05-07 14:28] LABS: Parathyroid Hormone Intact 146.3 pg/mL (8.7-77.1)
[2025-05-07 14:47] LABS: Anion Gap 12 (12-20); Blood Urea Nitrogen 20 mg/dL (9-16); Calcium 9.9 mg/dL (8.4-10.2); Carbon Dioxide 23 mmol/L (22-29); Chloride 110 mmol/L (96-108); Estimated Glomerular Filt Rate 50; Potassium 3.8 mmol/L (3.3-5.1); Sodium 141 mmol/L (135-145)
[2025-05-07 14:54] LABS: Total Protein Urine Random < 7 mg/dL (<12)
[2025-05-08 10:39] LABS: Tacrolimus Prograf 5.4 mcg/L
== END 2025-05-07 08:47 | disposition home or self-care (01) ==
LOC: HO.HKASLDS 08:46
PROVIDERS: Visit Provider Internal Medicine Nephrology
DX: Z94.0 Kidney transplant status (principal); I10 Essential (primary) hypertension
CPT/HCPCS: 36415; 80051; 80197; 81001; 81003; 82306; 82310; 82565; 82570; 83970; 84156; 84520; 85025

== ENCOUNTER 2025-05-13 14:37 | Outpatient (AMB) | payer OTHER, SELFPAY ==
--- NOTE | 2025-05-13 14:55 | HO.NEPHOV_ITS ---
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 She has been gaining weight. Her immunosuppression regimen includes Envarsus and Mycophenolate. She claims to be compliant with her medications. [facility] Medical History (Updated 03/18/25 @ 10:04 by Ryley Ybarra MD) Syncope Seasonal allergies GA (obstructive sleep apnea) Morbid obesity Mild cognitive impairment IgA nephropathy Frequent falls ESRD (end stage renal disease) on dialysis Depression Cervical cancer Back pain Surgical History Kidney transplant status H/O LEEP Status post gastric banding Social History Alcohol intake: never Patient Tobacco Use Status: Never used Tobacco Review of Systems Const All systems reviewed & are unremarkable except as noted in HPI and below Physical Exam Vital Signs: Last Vital Signs Pulse 67 05/13/25 14:58 BP 110/80 05/13/25 14:58 Pulse Ox 100 05/13/25 14:58 Oxygen Delivery Method Room Air 05/13/25 14:58 BMI result Body Mass Index 32.0 Const General: comfortable and no acute distress Orientation/consciousness: patient oriented x3 HEENT Head: Yes normocephalic Mouth: Normal oral and palatal mucosa present Eyes EOM: EOMs intact bilaterally Neck Neck: Yes supple Resp Auscultation: clear to auscultation bilaterally Cardio Jugular venous distension: no JVD Rate: regular rate GI Palpation (GI): Soft to palpation Auscultation: normal bowel sounds General: Yes no CVA tenderness Back/Spine/Pelvis Back: no CVA tenderness Skin General skin exam: no rashes or lesions noted Neuro General: patient oriented x3 and moves all extremities Extrem General: Yes no pedal edema Results Reviewed Nephrology Results: Hgb, (12.0-16.0) 11.6 g/dl L 05/07/25 WBC, (4.8-10.8) 4.7 X10*3/uL L 05/07/25 Plt Count, (160-400) 209 X10*3/uL 05/07/25 Sodium, (135-145) 141 mmol/L 05/07/25 Potassium, (3.3-5.1) 3.8 mmol/L 05/07/25 Chloride, (96-108) 110 mmol/L H 05/07/25 Carbon Dioxide, (22-29) 23 mmol/L 05/07/25 BUN, (9-16) 20 mg/dL H 05/07/25 Creatinine, (0.5-1.4) 1.11 mg/dL 05/07/25 Calcium, (8.4-10.2) 9.9 mg/dL 05/07/25 Phosphorus, (2.7-4.5) 3.5 mg/dL 03/12/25 PTH Intact, (8.7-77.1) 146.3 pg/mL H 05/07/25 Urine Protein, (Neg-Trace) Negative mg/dL 05/07/25 Urine Creatinine 122.70 mg/dL 05/07/25 Protein/Creatinin Ratio TNP 05/07/25 Assessment & Plan Assessment & Plan (1) Renal transplant recipient: Code(s): Z94.0 - Kidney transplant status Category: Surgical (2) Hypertension: Code(s): I10 - Essential (primary) hypertension Category: Medical Qualifiers: Hypertension type: primary hypertension Qualified Code(s): I10 - Essential (primary) hypertension Plan 1. Renal allograft function: Had been stable; continue to monitor 2. Immunosuppression: Currently maintained on tacrolimus and mycophenolate therapy. We will continue to maintain her serum tacrolimus level & adjust her dose accordingly. Needs annual dermatology visit being on immunosuppression Orders: Orders Complete Blood Count Auto Diff 2 Months I10 - Essential (primary) hypertension, Z94.0 - Kidney transplant status Vitamin D 25-OH Total 2 Months I10 - Essential (primary) hypertension, Z94.0 - Kidney transplant status Calcium 2 Months I10 - Essential (primary) hypertension, Z94.0 - Kidney transplant status Creatinine 2 Months I10 - Essential (primary) hypertension, Z94.0 - Kidney transplant status Alanine Aminotransferase 2 Months I10 - Essential (primary) hypertension, Z94.0 - Kidney transplant status Aspartate Amino Transferase 2 Months I10 - Essential (primary) hypertension, Z94.0 - Kidney transplant status Phosphorus 2 Months I10 - Essential (primary) hypertension, Z94.0 - Kidney transplant status Magnesium 2 Months I10 - Essential (primary) hypertension, Z94.0 - Kidney transplant status Electrolytes 2 Months I10 - Essential (primary) hypertension, Z94.0 - Kidney transplant status Blood Urea Nitrogen 2 Months I10 - Essential (primary) hypertension, Z94.0 - Kidney transplant status Other Ref Test - Misc 2 Months I10 - Essential (primary) hypertension, Z94.0 - Kidney transplant status Coding Level of Care Code Est Pt Level 4 (25303) Diagnoses Renal transplant recipient Z94.0 Primary hypertension I10 Hypertension type: primary hypertension
[2025-05-13 14:58] VITALS: BP 110/80; PULSE 67; O2SAT 100; BMI 32.0
--- OUTSIDE RECORDS SUMMARY | 2025-05-13 15:51 | XMS_ITS | Clinical Summary ---
Author Organization [facility] Address [address] [facility] [address] [place], [place] [id number] Phone Care Team Providers Care Screen Handler Name Role Phone Radha Bridges Primary Care Provider Social History Tobacco Use Types Packs/Day Years Used Date Smoking Tobacco: Never Assessed Education Answer Date Recorded Are you interested in more education? Not on milena e 02/17/2023 Are you concerned about learning? Not on file 02/17/2023 No 02/17/2023 No 02/17/2023 Digital Access Answer Date Recorded No 03/21/2023 No 03/21/2023 Reliable internet access at home? Not on file 03/21/2023 Device with a working camera? Not on file Comments Unknown Sex and Gender Information Value Date Recorded Sex Assigned at Not on file Legal Sex Female 3:15 PM EST Gender Identity Not on file Sexual Orientation Not on file Plan of Treatment Not on file Medical Devices Not on file Insurance [facility] [place] [address] [place] [address] [employer] [facility] [place] [address] [place] [address] [facility] [employer]PO [facility] EPO [facility] EPO Care Teams Screen Handler Relationship Specialty Start Date End Date Radha Bridges DO [address] [place] [phone] [email or web address] PCP - General 12/13/19 Additional Source Comments The information contained in this document represents components of the legal health record. It is not the complete legal health record.[facility]
--- OUTSIDE RECORDS SUMMARY | 2025-05-13 15:51 | XMS_ITS | Clinical Summary ---
Author Organization [facility] Address [address] [place] [address] Care Team Providers Care Mine Inspector Name Role Phone Audelia Vera MD Primary Care Provider [phone] Social History Tobacco Use Types Packs/Day Years [...] MGD MEDICARE OUT OF NETWORK Care Teams Mine Inspector Relationship Specialty Start Date End Date Audelia Vera MD [address] [place] [address] PCP - General 11/02/23
--- OUTSIDE RECORDS SUMMARY | 2025-05-13 15:51 | XMS_ITS | Clinical Summary ---
Author Organization 175 [facility] Address [address] [place] [address] Phone Care Team Providers Care Business Administration Teacher Name Role Phone Audelia Vera MD Primary [...] removal of realize gastric band VAGINOSCOPY PROCEDURE: [place] COLPOSCOPY CERVIX VAG LOOP ELTRD BX CERVIX Medical History Medical History Date Comments Cervical cancer ([facility] V24, [facility] V28) DX:Cervical cancer (HCC) Depression DX:Depression Morbid obesity ([facility] V24, [facility] V28) DX:Morbid obesity (HCC) Obstructive sleep apnea [...] Panel) 10/01/2022 Colorectal Cancer Screening: Colonoscopy 10/01/2022 HIV Screening 10/01/2022 Hepatitis C Screening 10/01/2022 Medicare Annual Wellness Visit 10/01/2022 Social Influencers of Health Screening 10/01/2022 Depression Screening 10/23/2024 Hypertension/CHF/CAD Annual BMP Blood Test 12/12/2024 Influenza [...] complete this topic Insurance [place] - [place] [facility] MEDICARE Member Subscriber Plan / Payer (Ef fective 2023-Present) Name:RENETTA MARTINEZ Relation to Subscriber:Self Name:Renetta Martinez Payer ID:[id number] Group ID:[id number] Type:Not on file Address: [address] [place] [phone] Advance Directives Documents on File Type Date Recorded Patient Cytotechnologist Supervisor Expl anation Health Care Decision (hx) 11/20/2019 [...] (hx) 11/20/2019 AD ZHONG DIRECTIVE Care Teams Business Administration Teacher Relationship Specialty Start Date End Date Audelia Vera MD [address] [place] [phone] PCP - General Internal Medicine 03/15/21
--- OUTSIDE RECORDS SUMMARY | 2025-05-13 15:51 | XMS_ITS | Clinical Summary ---
Author Organization [facility] Address [address] [phone] Phone Care Team Providers Care Ribbon Winder Name Role Phone Radha Bridges Primary Care [...] 10/21/2009 [place] [id number] ([id number]) [facility] ([id number]) Care Teams Ribbon Winder Relationship Specialty Start Date End Date Radha Bridges DO [address] PCP - General 11/02/20
== END 2025-05-13 15:31 | disposition home or self-care (01) ==
LOC: HO.HKAS 14:38
PROVIDERS: PCP Internal Medicine; Visit Provider Internal Medicine Nephrology
DX: Z94.0 Kidney transplant status (principal); I10 Essential (primary) hypertension
CPT/HCPCS: 99214

== ENCOUNTER → 2025-05-13 14:37 | Outpatient (BNVA) | payer OTHER, SELFPAY | PROVIDERS: PCP Internal Medicine; Visit Provider Internal Medicine Nephrology | DX: Z94.0 Kidney transplant status (principal); I10 Essential (primary) hypertension | CPT/HCPCS: 99212 ==

== ENCOUNTER 2025-07-07 09:09 | Outpatient (REF) | payer OTHER, SELFPAY ==
--- OUTSIDE RECORDS SUMMARY | 2025-07-07 10:46 | XMS_ITS | Clinical Summary ---
Author Organization [facility] Address [address] [place] [address] Care Team Providers Care Data Migration Lead Name Role Phone Audelia Vera MD Primary Care Provider [phone] Social History Tobacco Use Types Packs/Day Years [...] Zoster (Shingles) Vaccine (1 of 2) 2015 Influenza Vaccine 05/23/2025 09/11/2014, , 07/20/2011, Additional history exists COVID-19 Vaccine (3 - 2024-2 6 season) 2025 08/10/2021, 07/19/2021 Insurance MISC MGD MEDICARE OUT OF NETWORK Care Teams Data Migration Lead Relationship Specialty Start Date End Date Audelia Vera MD [address] [place] [address] PCP - General 11/02/23
--- OUTSIDE RECORDS SUMMARY | 2025-07-07 10:46 | XMS_ITS | Clinical Summary ---
Author Organization [facility] Address [address] [facility] [address] [place], [place] [phone] Phone Care Team Providers Care Recreation Counselor Name Role Phone Radha Bridges Primary Care [...] file Medical Devices Not on file Insurance [facility] EPO [facility] [employer] EPO [employer] [place] [address] [address] [employer] [facility] [address] [place] [address] [employer] [facility] EPO [facility] [employer] EPO [facility] EPO Care Teams Recreation Counselor Relationship Specialty Start Date End Date Radha Bridges DO [address] [place] [phone] [email or web address] PCP - General 12/13/19 Additional Source Comments The information contained in this document represents components of the legal health record. It is not the complete legal health record.[facility]
--- OUTSIDE RECORDS SUMMARY | 2025-07-07 10:47 | XMS_ITS | Clinical Summary ---
Author Organization [facility] Address [address] [phone] Phone Care Team Providers Care Motor Racer Name Role Phone Radha Bridges Primary Care [...] 10/21/2009 [place] [id number] ([id number]) [facility] ([id number]) Care Teams Motor Racer Relationship Specialty Start Date End Date Radha Bridges DO [address] PCP - General 11/02/20
--- OUTSIDE RECORDS SUMMARY | 2025-07-07 10:47 | XMS_ITS | Clinical Summary ---
Author Organization 175 [facility] Address [address] [place] [address] Phone Care Team Providers Care Coach Wirer Name Role Phone Audelia Vera MD Primary Care Provider [phone] Allergies Active Allergy Reactions Criticality Noted Date [...] removal of realize gastric band VAGINOSCOPY PROCEDURE: [place] COLPOSCOPY CERVIX VAG LOOP ELTRD BX CERVIX Medical History Medical History Date Comments Cervical cancer ([facility], [facility] V28) DX:Cervical cancer (HCC) Depression DX:Depression Morbid obesity ([facility] V24, [facility] V28) DX:Morbid obesity (HCC) Obstructive sleep apnea [...] complete this topic Insurance [place] - [place] [facility] MEDICARE Member Subscriber Plan / Payer (Ef fective 2023-Present) Name:RENETTA MARTINEZ Relation to Subscriber:Self Name:Renetta Martinez Payer ID:[id number] Group ID:[id number] Type:Not on file Address: [address] [place] [phone] Advance Directives Documents on File Type Date Recorded Patient Bar Staff Expl anation Health Care Decision (hx) 11/20/2019 [...] (hx) 11/20/2019 AD ZHONG DIRECTIVE Care Teams Coach Wirer Relationship Specialty Start Date End Date Audelia Vera MD [address] [place] [phone] PCP - General Internal Medicine 03/15/21
== END 2025-07-07 09:10 | disposition home or self-care (01) ==
LOC: HO.HKASLDS 09:09
PROVIDERS: Visit Provider Internal Medicine Nephrology
DX: Z13.89 Encounter for screening for other disorder (principal)

== ENCOUNTER 2025-07-09 09:18 | Outpatient (REF) | payer OTHER, SELFPAY ==
--- OUTSIDE RECORDS SUMMARY | 2025-07-09 11:00 | XMS_ITS | Clinical Summary ---
Author Organization [facility] Address [address] [phone] Phone Care Team Providers Care Plater Printed Circuit Board Panels Name Role Phone Radha Bridges Primary Care [...] 10/21/2009 [place] [id number] ([id number]) [facility] ([id number]) Care Teams Plater Printed Circuit Board Panels Relationship Specialty Start Date End Date Radha Bridges DO [address] PCP - General 11/02/20
--- OUTSIDE RECORDS SUMMARY | 2025-07-09 11:00 | XMS_ITS | Clinical Summary ---
Author Organization 175 [facility] Address [address] [place] [address] Phone Care Team Providers Care Quantitative Manager Name Role Phone Audelia Vera MD Primary [...] Comments Cervical cancer ([facility] V24, [facility] V28) DX:Cervical cancer (HCC) Depression DX:Depression Morbid obesity ([facility] V24, [facility] V28) DX:Morbid obesity (HCC) Obstructive sleep [...] complete this topic Insurance [place] - [place] [facility] MEDICARE Member Subscriber Plan / Payer (Ef fective 2023-Present) Name:RENETTA MARTINEZ Relation to Subscriber:Self Name:Renetta Martinez Payer ID:[id number] Group ID:[id number] Type:Not on file Address: [address] [place] [phone] Advance Directives Documents on File Type Date Recorded Patient Hanging Flags Decorator Expl anation Health Care Decision (hx) 11/20/2019 [...] (hx) 11/20/2019 AD ZHONG DIRECTIVE Care Teams Quantitative Manager Relationship Specialty Start Date End Date Audelia Vera MD [address] [place] [phone] PCP - General Internal Medicine 03/15/21
--- OUTSIDE RECORDS SUMMARY | 2025-07-09 11:00 | XMS_ITS | Clinical Summary ---
Author Organization [facility] Address [address] [place] [address] Care Team Providers Care Operations Research Scientist Name Role Phone Audelia Vera MD Primary Care Provider [phone] Social History Tobacco Use Types Packs/Day Years [...] MGD MEDICARE OUT OF NETWORK Care Teams Operations Research Scientist Relationship Specialty Start Date End Date Audelia Vera MD [address] [place] [address] PCP - General 11/02/23
--- OUTSIDE RECORDS SUMMARY | 2025-07-09 11:00 | XMS_ITS | Clinical Summary ---
Author Organization [facility] Address [address] [facility] [address] [place], [place] [id number] Phone Care Team Providers Care Preschool Substitute Teacher Name Role Phone Radha Bridges Primary Care [...] file Medical Devices Not on file Insurance [facility] EPO [facility] EPO [place] [address] [place] [address] [facility] EPO [facility] [place] [address] [place] [address] [facility] EPO [facility] EPO [facility] EPO [facility] EPO Care Teams Preschool Substitute Teacher Relationship Specialty Start Date End Date Radha Bridges DO [address] [place] [phone] [email or web address] PCP - General 12/13/19 Additional Source Comments The information contained in this document represents components of the legal health record. It is not the complete legal health record.[facility]
[2025-07-09 13:12] LABS: MANUAL DIFF FLAG NO
[2025-07-09 13:19] LABS: Hematocrit 38.2 % (37.0-47.0); Hemoglobin 12.1 g/dl (12.0-16.0); Imm Gran Abs Auto 0.05 X10*3/uL (0.00-0.03); Imm Gran Pct Auto 1.1 % (0.0-0.4); Lymphocytes Absolute Auto 1.0 X10*3/uL (1.2-4.9); Mean Corpuscular HGB Conc 31.7 g/dl (31.0-35.0); Mean Corpuscular Hemoglobin 30.1 pg (27.0-33.0); Mean Corpuscular Volume 95.0 fL (80.0-98.0); NRBC Abs Auto 0.000 X10*3/uL (0.0-0.012); NRBC Pct Auto 0.0 /100WBC (0.0-0.2); Platelet Count 174 X10*3/uL (160-400); Red Blood Count 4.02 X10*6/uL (4.20-5.50); White Blood Count 4.5 X10*3/uL (4.8-10.8)
[2025-07-09 14:03] LABS: Alanine Aminotransferase 6 U/L (0-31); Anion Gap 10 (12-20); Aspartate Amino Transferase 21 U/L (5-31); Blood Urea Nitrogen 20 mg/dL (9-16); Calcium 9.6 mg/dL (8.4-10.2); Carbon Dioxide 25 mmol/L (22-29); Chloride 108 mmol/L (96-108); Estimated Glomerular Filt Rate 54; Magnesium 1.8 mg/dL (1.6-2.6); Potassium 3.9 mmol/L (3.3-5.1); Sodium 139 mmol/L (135-145)
[2025-07-10 16:33] LABS: BK DNA QN RT PCR, UR NOT DETECTED (NOT DETECTED); BK DNA QN RT PCR, UR NOT DETECTED Log IU/mL (NOT DETECTED)
== END 2025-07-09 09:19 | disposition home or self-care (01) ==
LOC: HO.HKASLDS 09:18
PROVIDERS: Visit Provider Internal Medicine Nephrology
DX: I10 Essential (primary) hypertension (principal); Z94.0 Kidney transplant status
CPT/HCPCS: 36415; 80051; 82306; 82310; 82565; 83735; 84100; 84450; 84460; 84520; 85025; 87799

== ENCOUNTER 2025-07-15 13:30 | Outpatient (AMB) | payer OTHER, SELFPAY ==
--- NOTE | 2025-07-15 13:33 | HO.NEPHOV ---
Vital Signs 07/15/25 13:39 Height 5 ft 5 in Weight 195 lb 4 oz BMI 32.5 BP 80/60 L Blood Pressure Location Rt brachial Position Sitting Pulse 71 Pulse Source Pulse Oximeter Pulse Oximetry (%) 99 Oxygen Delivery Method Room Air Intake Visit Reasons: 2mon Transplant f/u w/labs-Conf Occupational Therapy Assist Required: No Accompanied by: Self / Same As Patient Allergies latex Allergy (Verified 07/15/25 13:39) Rash HPI Comments Details: 59 year old female with history of ESRD 2/2 IgA nephropathy, HTN, prior morbid obesity s/p lap band, removal, and sleeve gastrectomy, who underwent a living donor renal transplant on 05/10/2023. She has been gaining weight. Her immunosuppression regimen includes Envarsus and Mycophenolate. She claims to be compliant with her medications. [facility] Medical History (Updated 03/18/25 @ 10:04 by Ryley Ybarra MD) Syncope Seasonal allergies GA (obstructive sleep apnea) Morbid obesity Mild cognitive impairment IgA nephropathy Frequent falls ESRD (end stage renal disease) on dialysis Depression Cervical cancer Back pain Surgical History Kidney transplant status H/O LEEP Status post gastric banding Social History Alcohol intake: never Patient Tobacco Use Status: Never used Tobacco Review of Systems Const All systems reviewed & are unremarkable except as noted in HPI and below Physical Exam Const General: comfortable and no acute distress Orientation/consciousness: patient oriented x3 HEENT Head: Yes normocephalic Mouth: Normal oral and palatal mucosa present Eyes EOM: EOMs intact bilaterally Neck Neck: Yes supple Resp Auscultation: clear to auscultation bilaterally Cardio Jugular venous distension: no JVD Rate: regular rate GI Palpation (GI): Soft to palpation Auscultation: normal bowel sounds General: Yes no CVA tenderness Back/Spine/Pelvis Back: no CVA tenderness Skin General skin exam: no rashes or lesions noted Neuro General: patient oriented x3 and moves all extremities Extrem General: Yes no pedal edema Results Reviewed Nephrology Results: Hgb, (12.0-16.0) 12.1 g/dl 07/09/25 WBC, (4.8-10.8) 4.5 X10*3/uL L 07/09/25 Plt Count, (160-400) 174 X10*3/uL 07/09/25 Sodium, (135-145) 139 mmol/L 07/09/25 Potassium, (3.3-5.1) 3.9 mmol/L 07/09/25 Chloride, (96-108) 108 mmol/L 07/09/25 Carbon Dioxide, (22-29) 25 mmol/L 07/09/25 BUN, (9-16) 20 mg/dL H 07/09/25 Creatinine, (0.5-1.4) 1.05 mg/dL 07/09/25 Calcium, (8.4-10.2) 9.6 mg/dL 07/09/25 Phosphorus, (2.7-4.5) 2.9 mg/dL 07/09/25 PTH Intact, (8.7-77.1) 146.3 pg/mL H 05/07/25 Urine Protein, (Neg-Trace) Negative mg/dL 05/07/25 Urine Creatinine 122.70 mg/dL 05/07/25 Protein/Creatinin Ratio TNP 05/07/25 Assessment & Plan Assessment & Plan (1) Renal transplant recipient: Code(s): Z94.0 - Kidney transplant status Category: Surgical (2) Hypertension: Code(s): I10 - Essential (primary) hypertension Category: Medical Qualifiers: Hypertension type: primary hypertension Qualified Code(s): I10 - Essential (primary) hypertension Plan 1. Renal allograft function: Had been stable; continue to monitor 2. Immunosuppression: Currently maintained on tacrolimus and mycophenolate therapy. We will continue to maintain her serum tacrolimus level & adjust her dose accordingly. 3. Hypertension. Reduced BP medication by 50 % Needs annual dermatology visit being on immunosuppression Orders: Orders Tacrolimus Prograf 2 Weeks I10 - Essential (primary) hypertension, Z94.0 - Kidney transplant status Coding Level of Care Code Est Pt Level 4 (00944) Diagnoses Renal transplant recipient Z94.0 Primary hypertension I10 Hypertension type: primary hypertension
[2025-07-15 13:39] VITALS: BP 80/60; PULSE 71; O2SAT 99; BMI 32.5
--- OUTSIDE RECORDS SUMMARY | 2025-07-15 16:37 | XMS_ITS | Clinical Summary ---
Author Organization [address] [facility] Address [address] [place] [address] Phone Care Team Providers Care Air Tube Releaser Name Role Phone Audelia Vera MD Primary [...] removal of realize gastric band VAGINOSCOPY PROCEDURE: RI COLPOSCOPY CERVIX VAG LOOP ELTRD BX CERVIX Medical History Medical History Date Comments Cervical cancer ([facility] V24, [facility] V28) DX:Cervical cancer (HCC) Depression DX:Depression Morbid obesity ([facility] V24, [facility] V28) DX:Morbid obesity (HCC) Obstructive sleep apnea [...] complete this topic Insurance MEDICAID - [place] [facility] MEDICARE Member Subscriber Plan / Payer (Ef fective 2023-Present) Name:RENETTA MARTINEZ Relation to Subscriber:Self Name:Renetta Martinez Payer ID:[id number] Group ID:[id number] Type:Not on file Address: [address] [place] [id number] Advance Directives Documents on File Type Date Recorded Patient Research Dietitian Expl anation Health Care Decision (hx) 11/20/2019 [...] (hx) 11/20/2019 AD ZHONG DIRECTIVE Care Teams Air Tube Releaser Relationship Specialty Start Date End Date Audelia Vera MD [address] [place] [phone] PCP - General Internal Medicine 03/15/21
--- OUTSIDE RECORDS SUMMARY | 2025-07-15 16:37 | XMS_ITS | Clinical Summary ---
Author Organization [facility] Address [address] [facility] [address] [place], [place] [id number] Phone Care Team Providers Care Instrumentation Technologist Name Role Phone Radha Bridges Primary Care [...] file Medical Devices Not on file Insurance [facility] EPO [facility] EPO [place] [address] [place] [address] [facility] [facility] [place] [address] [facility] EPO [facility] EPO [facility] EPO Care Teams Instrumentation Technologist Relationship Specialty Start Date End Date Radha Bridges DO [address] [place] [phone] [email or web address] PCP - General 12/13/19 Additional Source Comments The information contained in this document represents components of the legal health record. It is not the complete legal health record.[facility]
--- OUTSIDE RECORDS SUMMARY | 2025-07-15 16:37 | XMS_ITS | Clinical Summary ---
Author Organization [facility] Address [address] [place] [address] Care Team Providers Care Application Penetration Tester Name Role Phone Audelia Vera MD Primary Care Provider [phone] Social History Tobacco Use Types Packs/Day Years [...] [facility]GD MEDICARE OUT OF NETWORK Care Teams Application Penetration Tester Relationship Specialty Start Date End Date Audelia Vera MD [address] [place] [address] PCP - General 11/02/23
--- OUTSIDE RECORDS SUMMARY | 2025-07-15 16:37 | XMS_ITS | Clinical Summary ---
Author Organization [facility] Address [address] [address] Phone Care Team Providers Care Assessment Nurse Practitioner Name Role Phone Radha Bridges Primary Care [...] 10/21/2009 [place] [id number] ([id number]) [facility] ([id number]) Care Teams Assessment Nurse Practitioner Relationship Specialty Start Date End Date Radha Bridges DO [address] [place] [address] PCP - General 11/02/20
== END 2025-07-15 14:10 | disposition home or self-care (01) ==
LOC: HO.HKAS 13:32
PROVIDERS: PCP Internal Medicine; Visit Provider Internal Medicine Nephrology
DX: Z94.0 Kidney transplant status (principal); I10 Essential (primary) hypertension
CPT/HCPCS: 99214

== ENCOUNTER → 2025-07-15 13:30 | Outpatient (BNVA) | payer OTHER, SELFPAY | PROVIDERS: PCP Internal Medicine; Visit Provider Internal Medicine Nephrology | DX: I10 Essential (primary) hypertension (principal); Z94.0 Kidney transplant status | CPT/HCPCS: 99212 ==

== ENCOUNTER 2025-08-28 09:20 | Outpatient (REF) | payer OTHER, SELFPAY ==
--- OUTSIDE RECORDS SUMMARY | 2025-08-23 22:59 | XMS_ITS | Continuity of Care Document ---
Author Organization [facility] Address [address] [place] [address]- Care Team Providers Care Metal Furnace Operator Name Role Phone Audelia Vera MD Primary Care Physician Encounter [facility] Date(s): 07/22/25 - 08/23/[address] [address]- Attending Physician: Not on Staff, Attending MD Encounter Type: Pre-OutPatient One Time Allergies, Adverse Reactions, Alerts Substance Criticality Severity Reaction Reaction Severity Status Latex Hives Itchy Active Immunizations Given and Recorded Vaccine Date Status Refusal Reason SARS-CoV-2 (COVID-19) mRNA BNT-162b2 vac 1 08/10/21 Given SARS-CoV-2 (COVID-19) mRNA BNT-162b2 vac 2 07/19/21 Given tetanus/diphtheria/pertussis, acel(Tdap) 02/19/21 Given influenza virus vaccine, inactivated 09/11/14 Give n influenza virus vaccine, inactivated 3 06/13/12 Gi sam influenza virus vaccine, inactivated 4 07/20/11 Gi sam influenza virus vaccine, inactivated 5 07/30/10 Gi sam Hepatitis B Vaccine (old term) 6 05/05/10 Given Hepatitis B Vaccine (old term) 7 11/02/09 Given Hepatitis B Vaccine (old term) 8 10/02/09 Given Influenza Inactive (IM) (oldterm) 9 10/21/09 Given influ virus vac, H1N1, inactive(oldterm) 10 10/02/09 Given Tetanus-Diphth Toxoids, Adult (oldterm) 11 09/02/09 Given 1Result Comment: normal saline diluent added lot number [id number] expires 01/20/2023 2Result Comment: normal saline diluent added lot number [id number] expires 02/19/2023 3Admin Note: vis given dated 04/23/12 4Admin Note: VIS GIVEN-DATED 05/17/11 5Admin Note: VIS GIVEN 06/01/10 faroese 6Admin Note: #3 in series 7Admin Note: #2 in series 8Admin Note: #1 in series, next in 1 month, then 5 months 9Admin Note: vis given 10Admin Note: vis 07/31 11Admin Note: vis given dated 08/30 Medications air conditioning unit air conditioning unit, See Instructions, # 1 each, Refills 0, Tot. Refills 0, Maintenance, dx: asthma ICD10: J45.902 duration: 99, 06/09/25 11:16:00 AM EDT, Supply Start Date: 06/09/25 Status: Ordered Medication Dispense Status: Completed Quantity: 1.0 Unit: each Total Allowed Fills: 1 Fills Dispensed: 0 albuterol CFC free 90 mcg/inh inhalation aerosol 2, puffs, Inhalation, Every 6 hours, # 1 each, Refills 6, Tot. Refills 6, Maintenance, 07/21/23 10:22:00 AM EDT, Route to Pharmacy Electronically, [id number], [facility]/pharmacy #[id number], dx: asthma, 165, cm, 07/21/23 10:01:00 EDT, Height, 61.5, kg, 05/10/23 6:06:00 EDT, Dry Weight Start Date: 07/21/23 Stop Date: 02/16/24 Status: Ordered Medication Dispense Status: Completed Quantity: 1.0 Unit: each Total Allowed Fills: 7 Fills Dispensed: 0 Blood Pressure Monitor See Instructions, # 1 each, Maintenance, to check blood pressure daily for medication titration Dx:essential hypertension ICD10: I10 duration: 52 weeks, 05/30/24 1:14:00 PM EDT, Supply Start Date: 05/30/24 Status: Ordered Medication Dispense Status: Completed Quantity: 1.0 Unit: each Total Allowed Fills: 1 Fills Dispensed: 0 docusate sodium 100 mg oral capsule 1 capsule = 100 mg, By Mouth, 3 times a day, PRN as needed for constipation, # 270 capsule, 0 Refills, Maintenance, 05/15/23 1:21:00 PM EDT, Capsule, [facility], Partial fill upon patient request if the prescription is for a schedule II opioid drug., 165, cm, 05/10/23 13:25:00 EDT, Height, 61.5, kg, 05/10/23 6:06:00 EDT, Dry Weight Start Date: 05/15/23 Status: Ordered Medication Dispense Status: Completed Quantity: 270.0 Unit: capsule Total Allowed Fills: 1 Fills Dispensed: 0 duloxetine 20 mg oral enteric coated capsule 0 Refills, Maintenance, 12/24/24 10:40:00 AM EST, Partial fill upon patient request if the prescription is for a schedule II opioid drug. Start Date: 12/24/24 Status: Ordered Medication Dispense Status: Completed Total Allowed Fills: 1 Fills Dispensed: 0 Envarsus XR 0.75 mg oral tablet, extended release 2 tablet = 1.5 mg, By Mouth, Daily in AM, # 60 tablet, 11 Refills, Maintenance, 08/11/23 10:19:00 AM EDT, [facility], Partial fill upon patient request if the prescription is for a schedule II opioid drug., 165, cm, 08/10/23 9:55:00 EDT, Height, 61.5, kg, 05/10/23 6:06:00 EDT, Dry Weight Start Date: 08/11/23 Status: Ordered Medication Dispense Status: Completed Quantity: 60.0 Unit: tablet Total Allowed Fills: 12 Fills Dispensed: 0 home blood pressure monitor home blood pressure monitor, See Instructions, # 1 each, Refills 0, Tot. Refills 0, Maintenance, dx: hypertension ICD10: I10 duration: 99, 05/30/24 1:04:00 PM EDT, Supply Start Date: 05/30/24 Status: Ordered Medication Dispense Status: Completed Quantity: 1.0 Unit: each Total Allowed Fills: 1 Fills Dispensed: 0 home scale home scale, See Instructions, # 1 each, Refills 0, Tot. Refills 0, Maintenance, to weigh self once per week dx: history of kidney transplant, morbid obesity ICD10: Z94.0, E66.01, 09/16/24 1:02:00 PM EST, Supply Start Date: 09/16/24 Status: Ordered Medication Dispense Status: Completed Quantity: 1.0 Unit: each Total Allowed Fills: 1 Fills Dispensed: 0 hydrOXYzine hydrochloride 10 mg oral tablet 0 Refills, Maintenance, 12/24/24 10:40:00 AM EST, Partial fill upon patient request if the prescription is for a schedule II opioid drug. Start Date: 12/24/24 Status: Ordered Medication Dispense Status: Completed Total Allowed Fills: 1 Fills Dispensed: 0 Lubricant Eye Drops preserved ophthalmic solution 1 drops, Eyes, Both, 2 times a day, # 5 mL, 1 Refills, Maintenance, 07/21/23 10:17:00 AM EDT, [facility]/pharmacy #[id number], Partial fill upon patient request if the prescription is for a schedule II opioid drug., 1 drops Eyes, Both 2 times a day,x14 days, 165, cm, 07/21/23 10:01:00 EDT, Height, 61.5, kg, 05/10/23 6:06:00 EDT, Dry Weight Start Date: 07/21/23 Stop Date: 08/18/23 Status: Ordered Medication Dispense Status: Completed Quantity: 5.0 Unit: mL Total Allowed Fills: 2 Fills Dispensed: 0 mycophenolic acid 180 mg oral delayed release tablet See Instructions, 2 tablet By Mouth 2 times a day 05/15, # 360 tablet, 6 Refills, Maintenance, 05/15/23 10:03:00 AM EDT, EC Tablet, [facility], Partial fill upon patient request if theprescription is for a schedule II opioid drug., 165, cm, 05/10/23 13:25:00 EDT, Height, 61.5, kg, 05/10/23 6:06:00 EDT, Dry Weight Start Date: 05/15/23 Status: Ordered Medication Dispense Status: Completed Quantity: 360.0 Unit: tablet Total Allowed Fills: 7 Fills Dispensed: 0 olmesartan 20 mg oral tablet 1 tablet = 20 mg, By Mouth, Daily, # 90 tablet, 3 Refills, Maintenance, 08/21/25 12:15:00 PM EDT, Tablet, [facility]/pharmacy #[id number], Partial fill upon patient request if the prescription is for a schedule II opioid drug., 165, cm, 08/21/25 10:25:00 EDT, Height, 87.5, kg, 03/25/25 12:08:00 EDT, Dry Weight Start Date: 08/21/25 Status: Ordered Medication Dispense Status: Completed Quantity: 90.0 Unit: tablet Total Allowed Fills: 4 Fills Dispensed: 0 Eda-Sissy Rx oral tablet 1 tablet, By Mouth, Daily, 0 Refills, Maintenance, 07/21/22 3:56:00 PM EDT, Partial fill upon patient request if the prescription is for a schedule II opioid drug. Start Date: 07/21/22 Status: Ordered Medication Dispense Status: Completed Total Allowed Fills: 1 Fills Dispensed: 0 walker with 4 wheels, seat and brakes walker with 4 wheels, seat and brakes, See Instructions, # 1 each, Refills 0, Tot. Refills 0, Maintenance, dx: ESRD, orthostatic intolerance ICD10: N18.6, I95.1 duration: 99. Fax to [facility], 02/06/23 6:19:00 PM EDT, Supply Start Date: 02/06/23 Status: Ordered Medication Dispense Status: Completed Quantity: 1.0 Unit: each Total Allowed Fills: 1 Fills Dispensed: 0 walking cane walking cane, See Instructions, # 1 each, Refills 0, Tot. Refills 0, Maintenance, dx: ESRD on dialysis, at risk for falls ICD10: N18.6 duration: 99, 11/23/23 11:59:00 AM EST, Supply Start Date: 11/23/23 Status: Ordered Medication Dispense Status: Completed Quantity: 1.0 Unit: each Total Allowed Fills: 1 Fills Dispensed: 0 Zepbound 2.5 mg/0.5 mL subcutaneous solution = 2.5 mg, Subcutaneous Injection, Every week, rotate injection sites, # 4 each, 3 Refills, Maintenance, 04/17/25 8:46:00 AM EDT, Solution, [id number], [place] approved through 03/27/2025, 165, cm, 04/15/25 13:47:00 EDT, Height, 87.5, kg, 03/25/25 12:08:00 EDT, Dry Weight Start Date: 04/17/25 Stop Date: 08/07/25 Status: Ordered Medication Dispense Status: Completed Quantity: 4.0 Unit: each Total Allowed Fills: 4 Fills Dispensed: 0 Problem List Condition Confirmation Course Effective Dates Status Health St atus Informant Back pain Confirmed Active Cervical cancer 1 Confirmed Active Depression Confirmed Active Living unrelated donor renal transplant 2 Confirmed 05/03/23 Active Hypertension Confirmed Active IgA nephropathy Confirmed Active Mild cognitive impairment Confirmed Active Morbid obesity Confirmed Active Obese class I Confirmed Active BHN/CCA/BHCP/CC-Landry luciana [id number]/ Health long-term, active care coordination Confirmed Active Frequent falls Confirmed Active Seasonal allergies Confirmed Active Syncope Confirmed Active 1s/p LEEP in her early s. 2Campath induction/NKR donor Social History Social History Type Response Smoking Status Never smoker entered on: 07/28/14 Sexual Orientation Self described orien tation: ; Straight or heterosexual Sex Sex Representation Female (finding) Patient Care team information Care Team Personnel Name: Chiquita Gonzalez RN Position: [facility] RN Member Role: Primary Care Nurse Name: Kwabena Shoemaker MD Position: [facility] Renal MD Member Role: Lifetime Consulting Physician Address: [address] [place] [address] [address] [facility] [place] [address]- Telecom: Name: Connie Irby Position: [facility] Associate Professional Member Role: Lifetime Consulting Provider Address: [address] [place] [address] [address] [facility] [place] [address]- Telecom: Name: Ric Vitale RN Position: [facility] RN Member Role: Primary Care Nurse Name: Ashly De Luna RN Position: [facility] JOSEF Nurse Member Role: Primary Care Nurse Name: Steph Major RN Position: [facility] RN Member Role: Primary Care Nurse Name: Namrata Lima Position: S Outreach Member Role: Lifetime Consulting Physician Name: Ryley Ybarra MD Position: [facility] Renal MD Member Role: Lifetime Consulting Physician Address: [address] [place] [address] [address] [facility] [place] [address]- [place] Telecom: Name: Génesis Donaldson RN Position: [facility] AMB Nurse Member Role: Primary Care Nurse Name: Alissa Lafleur RN Position: [facility] RN Member Role: Primary Care Nurse Name: Mckenna Borden RN Position: [facility] RN Member Role: Primary Care Nurse Name: Klaudia Severino RN Position: [facility] RN Member Role: Lifetime Consulting Physician Name: Linda Medrano NP Position: [facility] Associate Professional Member Role: Lifetime Consulting Provider Address: [address] [facility] [place] [address]- [place] Telecom: Name: Artie Moncada MD Position: [facility] Renal MD Member Role: Lifetime Consulting Physician Address: [address] [facility] [address] [facility] [place] [address]- [place] Telecom: Name: Barbara Enriquez RN Position: [facility] RN Member Role: Primary Care Nurse Name: Chyna Pollack RN Position: [facility] RN Member Role: Primary Care Nurse Name: Allyssa Vázquez RN Position: [facility] RN Member Role: Primary Care Nurse Name: Tate Melton DO Position: [facility] Renal MD Member Role: Lifetime Consulting Physician Address: [address] [facility] [place] [address] [place] Telecom: Name: Daniel Wiley MD Position: [facility] Outreach Member Role: Lifetime Consulting Physician Address: [address] [facility] [place] [address]- [place] Telecom: Name: Nati Kwon RN Position: [facility] RN Member Role: Primary Care Nurse Name: Cordell Ayala MD Position: [facility] Renal MD Member Role: Lifetime Consulting Physician Address: [address] [facility] [place] [address]- [place] Telecom: Name: Maria Antonia Byrd RN Position: [facility] RN Member Role: Primary Care Nurse Name: Breanna Mata RN Position: S RN Member Role: Primary Care Nurse Name: Kriss Martinez RN Position: S RN Member Role: Primary Care Nurse Name: Silva Rodriguez RN Position: S RN Member Role: Primary Care Nurse Name: Audelia Vera MD Position: [facility] Physician - Primary Care Member Role: PCP Address: [address] [place] [address] Telecom: Name: Khadar Ball RN Position: [facility] RN Member Role: Primary Care Nurse Name: Mookie Berrios RN Position: [facility] RN Member Role: Primary Care Nurse Care Team Related Persons Name: SHEBA PARK Name: FAMILIA FUNES Name: URSZULA MORALES Name: FLORA RICARDO Insurance Providers Guarantor name: PHI XAVIER [facility] Plan Information #: 1 Payer: [facility] Payer Identifier: NA Member Number: [id number] Group Number: [id number] Subscriber Identifier: [id number] Relationship to Subscriber: self Coverage Type: Medicare Managed Care (Includes Medicare Advantage Plans) Coverage Verification Date: NA Telecom: NA Address:
--- OUTSIDE RECORDS SUMMARY | 2025-08-24 23:59 | XMS_ITS | Continuity of Care Document ---
Author Organization [facility] Address [address] [place] [address]- Care Team Providers Care Assessment Analyst Name Role Phone Audelia Vera MD Primary Care Physician Encounter [facility] Date(s): 07/25/25 - 08/24/[address] [address]- Encounter Type: Triage Allergies, Adverse Reactions, Alerts Substance Criticality Severity [...] Comment: normal saline diluent added lot number [id number] expires 01/20/2023 2Result Comment: normal saline diluent added lot number [id number] expires 02/19/2023 3Admin Note: vis given dated 04/23/12 4Admin Note: VIS GIVEN-DATED 05/17/11 5Admin Note: VIS GIVEN 06/01/10 russian 6Admin Note: #3 in series 7Admin Note: [...] 10:22:00 AM EDT, Route to Pharmacy Electronically, [id number], [facility]/pharmacy #[id number], dx: asthma, 165, cm, 07/21/23 10:01:00 [...] Refills, Maintenance, 05/15/23 1:21:00 PM EDT, Capsule, [facility], Partial fill upon patient [...] 11 Refills, Maintenance, 08/11/23 10:19:00 AM EDT, [facility], Partial fill upon patient [...] 1 Refills, Maintenance, 07/21/23 10:17:00 AM EDT, [facility]/pharmacy #[id number], Partial fill upon patient request if [...] Maintenance, 05/15/23 10:03:00 AM EDT, EC Tablet, [facility], Partial fill upon patient [...] Refills, Maintenance, 08/21/25 12:15:00 PM EDT, Tablet, [facility]/pharmacy #[id number], Partial fill upon patient request if [...] Obese class I Confirmed Active BHN/CCA/BHCP/CC-Landry luciana Kqiny-[phone]/ Health retirement, active care coordination Confirmed Active Frequent falls Confirmed Active Seasonal allergies Confirmed Active Syncope Confirmed Active 1s/p LEEP in her early 20's. 2Campath induction/NKR donor Social History Social History Type Response Smoking Status Never smoker entered on: 07/28/14 Sexual Orientation Self described orien tation: ; Straight or heterosexual Sex Sex Representation Female (finding) Patient Care team information Care Team Personnel Name: Lisa BUCHANAN, Chiquita Stewart Position: [facility] RN Member Role: Primary Care Nurse Name: Kwabena Shoemaker MD Position: [facility] Renal MD Member Role: Lifetime Consulting Physician Address: [address] [place] [address] [address] [facility] [place], [place] [address] Telecom: Name: Connie Irby Position: [facility] Associate Professional Member Role: Lifetime Consulting Provider Address: [address] [place] [address] [address] [facility] [place], [place] [address] Telecom: Name: Ric Vitale RN Position: [facility] RN Member Role: Primary Care Nurse Name: Ashly De Luna RN Position: [facility] JOSEF Nurse Member Role: Primary Care Nurse Name: Steph Major RN Position: [facility] RN Member Role: Primary Care Nurse Name: Namrata Lima Position: S Outreach Member Role: Lifetime Consulting Physician Name: Ryley Ybarra MD Position: [facility] Renal MD Member Role: Lifetime Consulting Physician Address: [address] [place] [address] [address] [facility] [address]- [place] Telecom: Name: Génesis Donaldson RN Position: [facility] AMB Nurse Member Role: Primary Care Nurse Name: Alissa Lafleur RN Position: [facility] RN Member Role: Primary Care Nurse Name: Mckenna Borden RN Position: [facility] RN Member Role: Primary Care Nurse Name: Klaudia Severino RN Position: [facility] RN Member Role: Lifetime Consulting Physician Name: Linda Medrano NP Position: [facility] Associate Professional Member Role: Lifetime Consulting Provider Address: [address] [place] [address] [address] [facility] [place] [address]- [place] Telecom: Name: Artie Moncada MD Position: [facility] Renal MD Member Role: Lifetime Consulting Physician Address: [address] [place], [place] [address] [place] [address]- Telecom: Name: Barbara Enriquez RN Position: [facility] RN Member Role: Primary Care Nurse Name: Chyna Pollack RN Position: [facility] RN Member Role: Primary Care Nurse Name: Allyssa Vázquez RN Position: [facility] RN Member Role: Primary Care Nurse Name: Tate Melton DO Position: [facility] Renal MD Member Role: Lifetime Consulting Physician Address: [address] [place] [address] [address] [facility] [place] [address]- [place] Telecom: Name: Daniel Wiley MD Position: [facility] Outreach Member Role: Lifetime Consulting Physician Address: [address] [facility] [place] [address]- [place] Telecom: Name: Nati Kwon RN Position: [facility] RN Member Role: Primary Care Nurse Name: Cordell Ayala MD Position: [facility] Renal MD Member Role: Lifetime Consulting Physician Address: [address] [facility] [place] [address]- [place] Telecom: Name: Maria Antonia Byrd RN Position: [facility] RN Member Role: Primary Care Nurse Name: Breanna Mata RN Position: [facility] RN Member Role: Primary Care Nurse Name: Michelle BUCHANAN, Kriss Position: S RN Member Role: Primary Care Nurse Name: Silva Rodriguez RN Position: [facility] RN Member Role: Primary Care Nurse Name: Audelia Vera MD Position: [facility] Physician - Primary Care Member Role: PCP Address: [address] [place], [place] [address] Telecom: Name: Khadar Ball RN Position: [facility] RN Member Role: Primary Care Nurse Name: Mookie Berrios RN Position: [facility] RN Member Role: Primary Care Nurse Care Team Related Persons Name: SHBEA PARK Name: FAMILIA FUNES Name: URSZULA MORALES Name: FLORA RICARDO Insurance Providers Guarantor name: PHI P[facility] Plan Information #: 1 Payer: [facility] Payer Identifier: LISETH Member Number: [id number] Group Number: [id number] Subscriber Identifier: NA Relationship to Subscriber: self Coverage Type: Medicare Managed Care (Includes Medicare Advantage Plans) Coverage Verification Date: LISETH Telecom: NA Address: NA
--- OUTSIDE RECORDS SUMMARY | 2025-08-28 10:24 | XMS_ITS | Clinical Summary ---
Author Organization [facility] Address [address] [facility] [address] [place], [place] [phone] Phone Care Team Providers Care Heel Pricker Name Role Phone Radha Bridges Primary Care [...] file Medical Devices Not on file Insurance [facility] EPO [facility] [employer] [place] [address] [address] [place] [address] [employer] [employer] [facility] [place] [address] [place] [address] [facility] EPO Care Teams Heel Pricker Relationship Specialty Start Date End Date Radha Bridges DO [address] [place] [phone] [email or web address] PCP - General 12/13/19 Additional Source Comments The information contained in this document represents components of the legal health record. It is not the complete legal health record.[facility]
--- OUTSIDE RECORDS SUMMARY | 2025-08-28 10:24 | XMS_ITS | Clinical Summary ---
Author Organization [facility] Address [address] [place] [address] Phone Care Team Providers Care Board Hammer Operator Name Role Phone Audelia Vera MD [...] removal of realize gastric band VAGINOSCOPY PROCEDURE: DE COLPOSCOPY CERVIX VAG LOOP ELTRD BX CERVIX Medical History Medical History Date Comments Cervical cancer ([facility] V24, [facility] V28) DX:Cervical cancer (HCC) Depression DX:Depression Morbid obesity ([facility] V24, [facility] V28) DX:Morbid obesity (HCC) Obstructive sleep [...] Last Done Comments Breast Cancer Screening 1965 Colorectal Cancer Screening: Colonoscopy 1965 Pneumococcal Vaccine: 50+ Years (1 of 2 - PCV) 1984 Zoster Vaccines (1 of 2) 1984 Cervical Cancer Screening: Pap Smear 1986 RSV Immunization Adult Patients (1 - Risk 50-74 years 1-dose series) 2015 COVID-19 Vaccine (3 - Pfizer risk series) 09/07/2021 08/10/2021, 07/19/2021 Cholesterol Screening (Lipid Panel) 10/01/2022 HIV Screening 10/01/2022 Hepatitis C Screening 10/01/2022 Medicare Annual Wellness Visit 10/01/2022 Social Influencers of Health Screening 10/01/2022 Depression Screening 10/23/2024 Hypertension/CHF/CAD Annual BMP Blood Test 12/12/2024 Influenza Vaccine (#1) 2025 4, 06/13/2012, 07/20/2011, Additional history exists DTaP,Tdap,and Td Vaccines (3 - Td or Tdap) 02/19/2031 02/19/2021, 09/02/2009 Hepatitis B Vaccines Completed 05/05/2010, 11/02/2009, 10/02/2009 [...] complete this topic Insurance [place] - [place] [facility] MEDICARE Member Subscriber Plan / Payer (Ef fective 2023-Present) Name:RENETTA MARTINEZ Relation to Subscriber:Self Name:Renetta Martinez Payer ID:[id number] Group ID:[id number] Type:Not on file Address: [address] [place] [phone] Advance Directives Documents on File Type Date Recorded 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
--- OUTSIDE RECORDS SUMMARY | 2025-08-28 10:24 | XMS_ITS | Clinical Summary ---
Author Organization [facility] Address [address] [place] [address] Care Team Providers Care Emergency Management Program Specialist Name Role Phone Audelia Vera MD Primary [...] - 2024-2 6 season) 2025 08/10/2021, 07/19/2021 RSV Vaccine 50 years and old er and Patients (1 - 1-dose 75+ series) 2040 Insurance MISC MGD MEDICARE OUT OF NETWORK Care Teams Emergency Management Program Specialist Relationship Specialty Start Date End Date Audelia Vera MD [address] [place] [phone] PCP - General 11/02/23
[2025-08-29 05:03] LABS: Tacrolimus Prograf 3.5 mcg/L
== END 2025-08-28 09:21 | disposition home or self-care (01) ==
LOC: HO.HKASLDS 09:20
PROVIDERS: PCP Internal Medicine; Visit Provider Internal Medicine Nephrology
DX: Z51.81 Encounter for therapeutic drug level monitoring (principal); I10 Essential (primary) hypertension; Z94.0 Kidney transplant status
CPT/HCPCS: 36415; 80197

== ENCOUNTER 2025-09-04 13:58 | Outpatient (AMB) | payer OTHER, SELFPAY ==
--- NOTE | 2025-09-04 14:00 | HO.NEPHOV ---
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 She has been gaining weight. Her immunosuppression regimen includes Envarsus and Mycophenolate. She claims to be compliant with her medications. [facility] Medical History (Updated 03/18/25 @ 10:04 by Ryley Ybarra MD) Syncope Seasonal allergies GA (obstructive sleep apnea) Morbid obesity Mild cognitive impairment IgA nephropathy Frequent falls ESRD (end stage renal disease) on dialysis Depression Cervical cancer Back pain Surgical History Kidney transplant status H/O LEEP Status post gastric banding Social History Alcohol intake: never Patient Tobacco Use Status: Never used Tobacco Review of Systems Const All systems reviewed & are unremarkable except as noted in HPI and below Physical Exam Const General: comfortable and no acute distress Orientation/consciousness: patient oriented x3 HEENT Head: Yes normocephalic Mouth: Normal oral and palatal mucosa present Eyes EOM: EOMs intact bilaterally Neck Neck: Yes supple Resp Auscultation: clear to auscultation bilaterally Cardio Jugular venous distension: no JVD Rate: regular rate GI Palpation (GI): Soft to palpation Auscultation: normal bowel sounds General: Yes no CVA tenderness Back/Spine/Pelvis Back: no CVA tenderness Skin General skin exam: no rashes or lesions noted Neuro General: patient oriented x3 and moves all extremities Extrem General: Yes no pedal edema Results Reviewed Nephrology Results: Hgb, (12.0-16.0) 12.1 g/dl 07/09/25 WBC, (4.8-10.8) 4.5 X10*3/uL L 07/09/25 Plt Count, (160-400) 174 X10*3/uL 07/09/25 Sodium, (135-145) 139 mmol/L 07/09/25 Potassium, (3.3-5.1) 3.9 mmol/L 07/09/25 Chloride, (96-108) 108 mmol/L 07/09/25 Carbon Dioxide, (22-29) 25 mmol/L 07/09/25 BUN, (9-16) 20 mg/dL H 07/09/25 Creatinine, (0.5-1.4) 1.05 mg/dL 07/09/25 Calcium, (8.4-10.2) 9.6 mg/dL 07/09/25 Phosphorus, (2.7-4.5) 2.9 mg/dL 07/09/25 PTH Intact, (8.7-77.1) 146.3 pg/mL H 05/07/25 Urine Protein, (Neg-Trace) Negative mg/dL 05/07/25 Urine Creatinine 122.70 mg/dL 05/07/25 Protein/Creatinin Ratio TNP 05/07/25 Assessment & Plan Assessment & Plan (1) Renal transplant recipient: Code(s): Z94.0 - Kidney transplant status Category: Surgical (2) Hypertension: Code(s): I10 - Essential (primary) hypertension Category: Medical Qualifiers: Hypertension type: primary hypertension Qualified Code(s): I10 - Essential (primary) hypertension Plan 1. Renal allograft function: Had been stable; continue to monitor 2. Immunosuppression: Currently maintained on tacrolimus and mycophenolate therapy. We will continue to maintain her serum tacrolimus level & adjust her dose accordingly. ( Increased to 5 mg daily; Repeat levels ordered in 2 weeks) 3. Hypertension. Continue current dose of the medication for now Needs annual dermatology visit being on immunosuppression; Needs HCM update Orders: Orders Complete Blood Count Auto Diff 2 Months I10 - Essential (primary) hypertension, Z94.0 - Kidney transplant status Uric Acid 2 Months I10 - Essential (primary) hypertension, Z94.0 - Kidney transplant status UA and rflx microscopic 2 Months I10 - Essential (primary) hypertension, Z94.0 - Kidney transplant status Protein Creatinine Ratio, Ur 2 Months I10 - Essential (primary) hypertension, Z94.0 - Kidney transplant status Aspartate Amino Transferase 2 Months I10 - Essential (primary) hypertension, Z94.0 - Kidney transplant status Calcium 2 Months I10 - Essential (primary) hypertension, Z94.0 - Kidney transplant status Blood Urea Nitrogen 2 Months I10 - Essential (primary) hypertension, Z94.0 - Kidney transplant status Magnesium 2 Months I10 - Essential (primary) hypertension, Z94.0 - Kidney transplant status Phosphorus 2 Months I10 - Essential (primary) hypertension, Z94.0 - Kidney transplant status Tacrolimus Prograf 2 Weeks Z94.0 - Kidney transplant status Tacrolimus Prograf 2 Months I10 - Essential (primary) hypertension, Z94.0 - Kidney transplant status Alanine Aminotransferase 2 Months I10 - Essential (primary) hypertension, Z94.0 - Kidney transplant status Electrolytes 2 Months I10 - Essential (primary) hypertension, Z94.0 - Kidney transplant status Creatinine 2 Months I10 - Essential (primary) hypertension, Z94.0 - Kidney transplant status Coding Level of Care Code Est Pt Level 4 (63436) Diagnoses Renal transplant recipient Z94.0 Primary hypertension I10 Hypertension type: primary hypertension
[2025-09-04 14:10] VITALS: BP 100/70; BMI 33.7
--- OUTSIDE RECORDS SUMMARY | 2025-09-04 17:22 | XMS_ITS | Clinical Summary ---
Author Organization [facility] Address [address] [place] [address] Care Team Providers Care Ben Day Artist Name Role Phone Audelia Vera MD Primary [...] MGD MEDICARE OUT OF NETWORK Care Teams Ben Day Artist Relationship Specialty Start Date End Date Audelia Vera MD [address] [place] [phone] PCP - General 11/02/23
--- OUTSIDE RECORDS SUMMARY | 2025-09-04 17:22 | XMS_ITS | Clinical Summary ---
Author Organization [facility] Address [address] [facility] [address] [place], [place] [phone] Phone Care Team Providers Care Partition Notcher Name Role Phone Radha Bridges Primary Care [...] file Medical Devices Not on file Insurance [facility] E[employer] [place] [address] [place] [address] [facility] [facility] [place] [address] [place] [address] [facility] E[facility] Care Teams Partition Notcher Relationship Specialty Start Date End Date Radha Bridges DO [address] [place] [phone] [email or web address] PCP - General 12/13/19 Additional Source Comments The information contained in this document represents components of the legal health record. It is not the complete legal health record.[facility]
--- OUTSIDE RECORDS SUMMARY | 2025-09-04 17:22 | XMS_ITS | Clinical Summary ---
Author Organization [facility] Address [address] [place] [address] Phone Care Team Providers Care Cellophane Casting Machine Repairer Name Role Phone Audelia Vera MD Primary [...] removal of realize gastric band VAGINOSCOPY PROCEDURE: MO COLPOSCOPY CERVIX VAG LOOP ELTRD BX CERVIX Medical History Medical History Date Comments Cervical cancer ([facility] V24, [facility] V28) DX:Cervical cancer (HCC) Depression DX:Depression Morbid obesity ([facility] V24, [facility] V28) DX:Morbid obesity (HCC) Obstructive sleep [...] complete this topic Insurance [place] - [place] [facility] MEDICARE Member Subscriber Plan / Payer (Ef fective 2023-Present) Name:RENETTA MARTINEZ Relation to Subscriber:Self Name:Renetta Martinez Payer ID:[id number] Group ID:[id number] Type:Not on file Address: [address] [place] [phone] Advance Directives Documents on File Type Date Recorded 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
== END 2025-09-04 14:50 | disposition home or self-care (01) ==
LOC: HO.HKAS 13:58
PROVIDERS: PCP Internal Medicine; Visit Provider Internal Medicine Nephrology
DX: Z94.0 Kidney transplant status (principal); I10 Essential (primary) hypertension
CPT/HCPCS: 99214

== ENCOUNTER → 2025-09-04 13:58 | Outpatient (BNVA) | payer OTHER, SELFPAY | PROVIDERS: PCP Internal Medicine; Visit Provider Internal Medicine Nephrology | DX: I10 Essential (primary) hypertension (principal); Z94.0 Kidney transplant status | CPT/HCPCS: 99212 ==